=== PATIENT | male | born 1980 | race African-American/Black ===

== ENCOUNTER → 2016-11-30 | Outpatient (CLI) | payer MEDICAID | LOC: OD 13:03 | PROVIDERS: ATTEND Physician Assistant | DX: R05 Cough (principal) | CPT/HCPCS: 71020 ==

== ENCOUNTER → 2017-05-19 | Outpatient (CLI) | payer MEDICAID ==
--- NOTE | 2017-05-19 10:50 | RADIOLOGY REPORT (SQ) ---
EXAM DESCRIPTION: KUB COMPLETED DATE/TIME: 05/19/2017 10:16 am REASON FOR STUDY: FOREIGN BODY IN COLON, INITIAL ENCOUNTER T18.4XXA FOREIGN BODY IN COLON, INITIAL ENCOUNTER COMPARISON: None. NUMBER OF VIEWS: One view. TECHNIQUE: Supine radiographic image of the abdomen acquired. LIMITATIONS: None. FINDINGS: BOWEL GAS PATTERN: Nonobstructive bowel gas pattern. CALCIFICATIONS: No suspicious calcifications. SOFT TISSUES: No organomegaly. No radiopaque foreign body is seen. HARDWARE: None in the abdomen. BONES: No acute fracture. No worrisome bone lesions. OTHER: No other significant finding. IMPRESSION: NO RADIOGRAPHIC EVIDENCE FOR ACUTE ABDOMINAL DISEASE. TECHNICAL DOCUMENTATION: JOB ID: [id number] [employer]- All Rights Reserved
== END ==
LOC: OD 09:43
PROVIDERS: ATTEND Physician Assistant Surgical
DX: T18.4XXA Foreign body in colon, initial encounter (principal)
CPT/HCPCS: 74000

== ENCOUNTER 2018-02-24 15:37 | Inpatient (IN) | payer MEDICAID ==
--- NOTE | 2018-02-24 16:34 | ER Document Report ---
ED Medical Screen (RME) - General Chief Complaint: Probable Seizure Stated Complaint: POSSIBLE SEIZURE Time Seen by Provider: 02/24/18 16:34 Notes: 37-year-old male. Long-standing history of seizures. Has had multiple seizures in the last 24 hours. Last seizure was approximately 3 hours ago. Still postictal according to family members. Denies any fever, chills, sweats. I have greeted and performed a rapid initial assessment of this patient. A comprehensive ED assessment and evaluation of the patient, analysis of test results and completion of the medical decision making process will be conducted by additional ED providers. TRAVEL OUTSIDE OF THE [place] IN LAST 30 DAYS: No - Related Data Allergies/Adverse Reactions: No Known Allergies Allergy (Verified 02/24/18 16:36) Past Medical History - Social History Chew tobacco use (# tins/day): No Frequency of alcohol use: None Drug Abuse: None Pulmonary Medical History: Denies: Hx Tuberculosis Neurological Medical History: Reports: Hx Seizures Renal/ Medical History: Denies: Hx Peritoneal Dialysis GI Medical History: Reports: Hx Gastroesophageal Reflux Disease Past Surgical History: Reports: Hx Oral Surgery, Other - Vagal nerve stimulator in 2014 - Immunizations Hx Diphtheria, Pertussis, Tetanus Vaccination: No Physical Exam - Vital signs Vitals: Temp Pulse Resp BP Pulse Ox 99.5 F 114 H 24 H 147/95 H 94 02/24/18 15:44 02/24/18 15:44 02/24/18 15:44 02/24/18 15:44 02/24/18 15:44 Interpretation: Tachycardic - Notes Notes: Postictal in appearance - HEENT Head: Normocephalic, Atraumatic Eyes: Normal Pupils: PERRL - Respiratory Respiratory status: No respiratory distress Chest status: Nontender Breath sounds: Normal Chest palpation: Normal - Cardiovascular Rhythm: Tachycardia Heart sounds: Normal auscultation - Abdominal Inspection: Normal Distension: No distension Bowel sounds: Normal Tenderness: Nontender Organomegaly: No organomegaly - Neurological Neuro grossly intact: Yes Cognition: Confused, Other - Appears a bit postictal Orientation: AAOx4 Steve Coma Scale Eye Opening: Spontaneous [place] Coma Scale Verbal: Oriented Steve Coma Scale Motor: Obeys Commands [place] Coma Scale Total: 15 Speech: Normal Motor strength normal: LUE, RUE, LLE, RLE Sensory: Normal Course - Vital Signs Vital signs: Temp Pulse Resp BP Pulse Ox 99.5 F 114 H 24 H 147/95 H 94 02/24/18 15:44 02/24/18 15:44 02/24/18 15:44 02/24/18 15:44 02/24/18 15:44 Doctor's Discharge - Discharge Referrals: ROBERT HOUSE MD [Primary Care Provider] - Follow up as needed
[2018-02-24] MEDS ORDERED: LORAZEPAM INJ 2 MG/1 ML VIAL IV ONE (16:38)
[2018-02-24] MEDS ORDERED: NORMAL SALINE 1000 ML 1,000 ML IV ONE (18:05)
[2018-02-24 18:19] LABS: ABSOLUTE LYMPHOCYTES (AUTO) 1.3 10^3/uL (0.5-4.7); ABSOLUTE MONOCYTES (AUTO) 1.1 10^3/uL (0.1-1.4); ABSOLUTE NEUT (AUTO) 15.2 10^3/uL (1.7-8.2); BASOPHILS % (AUTO) 0.2 % (0-2); HEMATOCRIT 53.4 % (37.9-51.0); HEMOGLOBIN 17.7 g/dL (13.5-17.0); LYMPHOCYTES % (AUTO) 7.2 % (13-45); MEAN CORPUSCULAR HEMOGLOBIN 26.3 pg (27.0-33.4); MEAN CORPUSCULAR HGB CONC 33.2 g/dL (32.0-36.0); MEAN CORPUSCULAR VOLUME 79 fl (80-97); PLATELET COUNT 282 10^3/uL (150-450); RED BLOOD COUNT 6.74 10^6/uL (4.35-5.55); RED CELL DISTRIBUTION WIDTH 17.8 % (11.5-14.0); SEGMENTED NEUTROPHILS % (AUTO) 86.6 % (42-78); TOTAL CELLS COUNTED % (AUTO) 100 %; WHITE BLOOD COUNT 17.6 10^3/uL (4.0-10.5)
[2018-02-24 18:32] LABS: ALANINE AMINOTRANSFERASE 37 U/L (21-72); ALBUMIN 5.1 g/dL (3.5-5.0); ALKALINE PHOSPHATASE 122 U/L (38-126); ANION GAP 19 (5-19); APPEARANCE,URINE CLOUDY; ASPARTATE AMINO TRANSFERASE 49 U/L (17-59); BILIRUBIN,DIRECT 0.6 mg/dL (0.0-0.4); BILIRUBIN,TOTAL 0.7 mg/dL (0.2-1.3); BILIRUBIN,URINE NEGATIVE (NEGATIVE); BLOOD UREA NITROGEN 15 mg/dL (7-20); CALCIUM 10.3 mg/dL (8.4-10.2); CARBON DIOXIDE 20 mmol/L (22-30); CHLORIDE 110 mmol/L (98-107); COLOR,URINE YELLOW; GLUCOSE 93 mg/dL (75-110); GLUCOSE, URINE NEGATIVE (NEGATIVE); KETONES,URINE TRACE mg/dL (NEGATIVE); LEUKOCYTE ESTERASE,URINE NEGATIVE (NEGATIVE); NITRITE,URINE NEGATIVE (NEGATIVE); POTASSIUM 4.5 mmol/L (3.6-5.0); PROTEIN,URINE 100 mg/dL (NEGATIVE); SODIUM 149.1 mmol/L (137-145); TOTAL PROTEIN 8.8 g/dL (6.3-8.2); UROBILINOGEN,URINE NEGATIVE mg/dL (<2.0)
--- NOTE | 2018-02-24 19:00 | RADIOLOGY REPORT (SQ) ---
EXAM DESCRIPTION: CT HEAD WITHOUT COMPLETED DATE/TIME: 02/24/2018 6:35 pm REASON FOR STUDY: s/p grand mal seizure-hit head COMPARISON: None. TECHNIQUE: Axial images acquired through the brain without intravenous contrast. Images reviewed wi th bone, brain and subdural windows. Images stored on PACS. All CT scanners at this facility use dose modulation, iterative reconstruction, and/or weight based d osing when appropriate to reduce radiation dose to as low as reasonably achievable (ALARA). [facility]: Dose Right [facility]: CareDose [facility]: Dose Right [facility]: Teradose 4D [facility]: Stemgent RADIATION DOSE: CT Rad equipment meets quality standard of care and radiation dose reduction techniq ues were employed. CTDIvol: 53.2 mGy. DLP: 1044 mGy-cm. mGy. LIMITATIONS: None. FINDINGS: VENTRICLES: Normal size and contour. CEREBRUM: No masses. No hemorrhage. No midline shift. No evidence for acute infarction. Normal gra y/white matter differentiation. No areas of low density in the white matter. CEREBELLUM: No masses. No hemorrhage. No alteration of density. No evidence for acute infarction. EXTRAAXIAL SPACES: No fluid collections. No masses. ORBITS AND GLOBE: No intra- or extraconal masses. Normal contour of globe without masses. CALVARIUM: No fracture. PARANASAL SINUSES: No fluid or mucosal thickening. SOFT TISSUES: No mass or hematoma. OTHER: No other significant finding. IMPRESSION: No evidence of calvarial injury or intracranial hemorrhage. EVIDENCE OF ACUTE STROKE: NO. COMMENT: Quality ID # [id number]: Final reports with documentation of one or more dose reduction techniques (e.g., Automated exposure control, adjustment of the mA and/or kV according to patient size, use of iterative reconstruction technique) TECHNICAL DOCUMENTATION: JOB ID: [id number] [employer]- All Rights Reserved Reading location - IP/workstation name: [email or web address]
--- NOTE | 2018-02-24 19:01 | RADIOLOGY REPORT (SQ) ---
EXAM DESCRIPTION: CHEST SINGLE VIEW COMPLETED DATE/TIME: 02/24/2018 6:46 pm REASON FOR STUDY: seizure COMPARISON: 05/12/2017 EXAM PARAMETERS: NUMBER OF VIEWS: One view. TECHNIQUE: Single frontal radiographic view of the chest acquired. RADIATION DOSE: NA LIMITATIONS: None. FINDINGS: LUNGS AND PLEURA: Patchy retrocardiac opacity may represent a left lower lobe consolidatio n. No pneumothorax. No pleural effusion. MEDIASTINUM AND HILAR STRUCTURES: No masses. Contour normal. HEART AND VASCULAR STRUCTURES: Heart normal in size. Normal vasculature. BONES: No acute findings. HARDWARE: None in the chest. OTHER: No other significant finding. IMPRESSION: Retrocardiac opacity may represent a left lower lobe consolidation. No evidence of acut e osseous injury or pneumothorax. TECHNICAL DOCUMENTATION: JOB ID: [id number] [employer]- All Rights Reserved Reading location - IP/workstation name: [email or web address]
[2018-02-24] MEDS ORDERED: ACETAMINOPHEN 650 MG SUPP.RECT PR ONE ×2 (19:17→19:22)
[2018-02-24] MEDS ORDERED: CEFTRIAXONE 2 GM/D5W RTU 2 GM/50 ML RTUPB IV ONE (19:25)
[2018-02-24] MEDS ORDERED: AZITHROMYCIN INJ 500 MG VIAL IV ONE (19:26)
--- NOTE | 2018-02-24 19:32 | ER Document Report ---
ED General - General Chief Complaint: Probable Seizure Stated Complaint: POSSIBLE SEIZURE Time Seen by Provider: 02/24/18 16:34 Mode of Arrival: Stretcher Information source: Parent Notes: This is a 37-year-old man with a history of developmental delay, epilepsy who is brought to the emergency room after several grand mal seizures. Patient does have a history of a admission a year ago after grand mal seizures in the setting of a pneumonia. The patient's mother does state that he has had a cough. The patient himself is usually not a complainer. He denies pain. Medications: Onfi 20 mg twice daily Lyrica 75 mg twice daily Keppra 1500 mg twice daily Lamictal 300 mg twice daily Primary CARE physician: Dr. Barney Neurologist has been Dr. Catalan who has retired (they are in the process of getting a new neurologist). TRAVEL OUTSIDE OF THE [place] IN LAST 30 DAYS: No - HPI Onset: Yesterday Onset/Duration: Gradual Quality of pain: No pain Severity: None Pain Level: Denies Associated symptoms: Nonproductive cough, Fever Exacerbated by: Denies Relieved by: Denies Similar symptoms previously: Yes Recently seen / treated by doctor: No - Related Data Allergies/Adverse Reactions: No Known Allergies Allergy (Verified 02/24/18 16:36) Past Medical History - General Information source: Patient - Social History Smoking Status: Never Smoker Cigarette use (# per day): No Chew tobacco use (# tins/day): No Frequency of alcohol use: None Drug Abuse: None Lives with: Family Family History: Reviewed & Not Pertinent Patient has suicidal ideation: No Patient has homicidal ideation: No Pulmonary Medical History: Denies: Hx Tuberculosis Neurological Medical History: Reports: Hx Seizures Renal/ Medical History: Denies: Hx Peritoneal Dialysis GI Medical History: Reports: Hx Gastroesophageal Reflux Disease Past Surgical History: Reports: Hx Oral Surgery, Other - Vagal nerve stimulator in 2015 - Immunizations Hx Diphtheria, Pertussis, Tetanus Vaccination: No Review of Systems - Review of Systems Constitutional: denies: Chills, Fever EENT: No symptoms reported Cardiovascular: No symptoms reported Respiratory: See HPI Gastrointestinal: No symptoms reported Genitourinary: No symptoms reported Male Genitourinary: No symptoms reported Musculoskeletal: No symptoms reported Skin: No symptoms reported Hematologic/Lymphatic: No symptoms reported Neurological/Psychological: See HPI Physical Exam - Vital signs Vitals: Temp Pulse Resp BP Pulse Ox 99.5 F 114 H 24 H 147/95 H 94 02/24/18 15:44 02/24/18 15:44 02/24/18 15:44 02/24/18 15:44 02/24/18 15:44 Notes: Physical exam: GENERAL: Patient is alert, he is answering questions. He denies any pain. He is is at his baseline mental status as per the mother. His temperature is 101.9 rectally. HEAD: Atraumatic, normocephalic. EYES: Pupils equal round and reactive to light, extraocular movements intact, sclera anicteric, conjunctiva are normal. ENT: TMs normal, nares patent, oropharynx clear without exudates. Moist mucous membranes. NECK: Normal range of motion, supple without obvious mass or JVD. LUNGS: Breath sounds clear to auscultation bilaterally and equal. No wheezes rales or rhonchi. HEART: Regular rate and rhythm without murmurs, rubs or gallops. ABDOMEN: Soft, normoactive bowel sounds. No tenderness to palpation. No guarding, no rebound. No masses appreciated. EXTREMITIES: Normal range of motion, no pitting or edema. No clubbing or cyanosis. NEUROLOGICAL: Moving all extremities, at baseline mentally. PSYCH: Normal mood, normal affect. SKIN: Warm, Dry, normal turgor, no rashes or lesions noted. Course - Re-evaluation Re-evalutation: The patient has had a number of seizures today in the setting of an acute febrile illness. Patient's mother does state he has had a cough. The radiologist is read a retrocardiac x-ray on his chest x-ray consistent with pneumonia. He does have a leukocytosis. He does have a history of pneumonia in the past. Blood cultures were sent, IV fluids were started and the patient was started on IV ceftriaxone and IV azithromycin. He was observed in the ER for 5 hours and has not had any further seizures. I discussed the case with Dr. Dyer who is covering for Dr. Barney and willing to admit the patient to the hospital. 02/24/18 20:58 02/24/18 22:06 Note: Patient is due his nighttime meds: I have written for Keppra 1500 mg once , Lamictal 300 mg once, Lyrica 75 mg once. He do not have the Onfi and the patient's mother is going home to get it. He is remained seizure-free. - Vital Signs Vital signs: Temp Pulse Resp BP Pulse Ox 99.5 F 114 H 22 H 155/96 H 97 02/24/18 20:30 02/24/18 15:44 02/24/18 23:00 02/24/18 21:00 02/24/18 23:00 - Laboratory Result Diagrams: 02/24/18 17:40 02/24/18 17:40 Laboratory results interpreted by me: 02/24/18 02/24/18 02/24/18 17:40 17:40 17:40 WBC 17.6 H RBC 6.74 H Hgb 17.7 H Hct 53.4 H MCV 79 L MCH 26.3 L RDW 17.8 H Seg Neutrophils % 86.6 H Lymphocytes % 7.2 L Absolute Neutrophils 15.2 H Sodium 149.1 H Chloride 110 H Carbon Dioxide 20 L Calcium 10.3 H Magnesium 2.6 H Direct Bilirubin 0.6 H Total Protein 8.8 H Albumin 5.1 H Urine Protein Urine Ketones Urine Blood 02/24/18 17:40 WBC RBC Hgb Hct MCV MCH RDW Seg Neutrophils % Lymphocytes % Absolute Neutrophils Sodium Chloride Carbon Dioxide Calcium Magnesium Direct Bilirubin Total Protein Albumin Urine Protein 100 H Urine Ketones TRACE H Urine Blood LARGE H - Diagnostic Test Radiology reviewed: Image reviewed, Reports reviewed - Retrocardiac infiltrate Critical Care Note - Critical Care Note Total time excluding time spent on procedures (mins): 60 Discharge - Discharge Clinical Impression: Pneumonia, Seizure disorder, Seizures Condition: Stable Disposition: ADMITTED INPATIENT Admitting Provider: Ector Maldonado is covering Unit Admitted: Telemetry
[2018-02-24] MEDS ORDERED: CLOBAZAM 20 MG PO SCH (21:45)
[2018-02-24] MEDS ORDERED: LEVOFLOXACIN 750 MG/D5W RTU 750 MG/150 ML RTUPB IV ONE (22:00)
[2018-02-24] MEDS ORDERED: PREGABALIN 75 MG CAPSULE PO ONE ×2 (22:00)
[2018-02-24] MEDS ORDERED: LEVETIRACETAM 1500 MG/NACL-ISO 1,500 MG/100 ML RTUPB IV SCH (22:00)
[2018-02-24] MEDS ORDERED: IPRATROPIUM/ALBUTEROL 0.5-2.5 MG/3 ML AMPUL NEB ONE (22:00)
[2018-02-24] MEDS ORDERED: LAMOTRIGINE 100 MG TABLET PO ONE (22:00)
[2018-02-24 22:19] LABS: CREATINE KINASE MB 1.24 ng/mL (<4.55); TROPONIN I < 0.012 ng/mL
[2018-02-24] MEDS: LEVETIRACETAM 500 MG TABLET PO SCH (22:38)
[2018-02-24] MEDS: NORMAL SALINE 1000 ML 1,000 ML IV PRN (22:43)
[2018-02-25] MEDS: CEFEPIME 2 GM/D5W RTU 2 GM/50 ML RTUPB IV SCH ×3 (02:11→23:19)
[2018-02-25] MEDS: IPRATROPIUM/ALBUTEROL 0.5-2.5 MG/3 ML AMPUL NEB SCH ×4 (02:50→20:12)
[2018-02-25] MEDS: NORMAL SALINE 1000 ML 1,000 ML IV PRN ×3 (05:27→23:20)
[2018-02-25 06:54] LABS: ALANINE AMINOTRANSFERASE 38 U/L (21-72); ALKALINE PHOSPHATASE 90 U/L (38-126); ANION GAP 15 (5-19); ASPARTATE AMINO TRANSFERASE 110 U/L (17-59); BILIRUBIN,DIRECT 0.5 mg/dL (0.0-0.4); BILIRUBIN,TOTAL 0.8 mg/dL (0.2-1.3); BLOOD UREA NITROGEN 12 mg/dL (7-20); CARBON DIOXIDE 20 mmol/L (22-30); CHLORIDE 108 mmol/L (98-107); GLUCOSE 92 mg/dL (75-110); POTASSIUM 4.2 mmol/L (3.6-5.0); SODIUM 143.4 mmol/L (137-145); TOTAL PROTEIN 7.1 g/dL (6.3-8.2)
[2018-02-25] MEDS: ENOXAPARIN SODIUM INJ 40 MG/0.4 ML DISP.SYRIN SUBCUT SCH (09:21)
[2018-02-25] MEDS: PREGABALIN 75 MG CAPSULE PO SCH ×2 (09:21→17:34)
[2018-02-25] MEDS: LAMOTRIGINE 100 MG TABLET PO SCH ×2 (09:21→17:34)
[2018-02-25] MEDS: LEVETIRACETAM 500 MG TABLET PO SCH ×2 (09:21→23:20)
[2018-02-25] MEDS ORDERED: LEVOFLOXACIN 750 MG/D5W RTU 750 MG/150 ML RTUPB IV SCH (10:00)
[2018-02-25] MEDS ORDERED: ACETAMINOPHEN 325 MG TABLET PO PRN (10:22)
[2018-02-25] MEDS ORDERED: LORAZEPAM INJ 2 MG/1 ML VIAL IV PRN (10:23)
--- NOTE | 2018-02-25 11:11 | PDOC H&P ---
History of Present Illness Admission Date/PCP: 02/24/18 21:02 ROBERT HOUSE MD History of Present Illness: MIGUEL ANGEL ALCARAZ is a 37 year old male with a history of developmental delay, epilepsy, he was brought to the emergency room by his mother for evaluation of several episode of seizure, history taking is a challenge from this patient, on evaluation in the emergency room he was found to have pneumonia, chest x-ray showed retrocardiac infiltrate with leukocytosis and fever. Past Medical History Neurological Medical History: Reports: Seizures, Other - Developmental delay GI Medical History: Reports: Gastroesophageal Reflux Disease Past Surgical History Past Surgical History: Reports: Other - Vagal nerve stimulator in 2015 Social History Lives with: Family Smoking Status: Never Smoker Frequency of Alcohol Use: None Hx Recreational Drug Use: No Drugs: None Hx Prescription Drug Abuse: No Family History Family History: Reviewed & Not Pertinent Parental Family History Reviewed: Yes Children Family History Reviewed: Yes Sibling(s) Family History Reviewed.: Yes Medication/Allergy Home Medications: Clobazam [Onfi] 20 mg PO BID 05/10/17 Lamotrigine [Lamictal] 300 mg PO BID 05/10/17 Pregabalin [Lyrica 75 mg Capsule] 75 mg PO BID 05/10/17 Levetiracetam [Keppra 500 mg Tablet] 1,500 mg PO Q12 #60 tablet 05/14/17 Allergies/Adverse Reactions: No Known Allergies Allergy (Verified 02/24/18 16:36) Review of Systems Constitutional: ABSENT: chills, fever(s), headache(s), weight gain, weight loss Eyes: ABSENT: visual disturbances Ears: ABSENT: hearing changes Cardiovascular: ABSENT: chest pain, dyspnea on exertion, edema, orthropnea, palpitations Respiratory: PRESENT: cough, sputum. ABSENT: hemoptysis Gastrointestinal: ABSENT: abdominal pain, constipation, diarrhea, hematemesis, hematochezia, nausea, vomiting Genitourinary: ABSENT: dysuria, hematuria Musculoskeletal: ABSENT: joint swelling Integumentary: ABSENT: rash, wounds Neurological: ABSENT: abnormal gait, abnormal speech, confusion, dizziness, focal weakness, syncope Psychiatric: ABSENT: anxiety, depression, homidical ideation, suicidal ideation Endocrine: ABSENT: cold intolerance, heat intolerance, menstrual abnormalities, polydipsia, polyuria Hematologic/Lymphatic: ABSENT: easy bleeding, easy bruising, lymphadenopathy Physical Exam Vital Signs: Temp Pulse Resp BP Pulse Ox 98.8 F 105 H 16 152/97 H 96 02/25/18 07:23 02/25/18 08:33 02/25/18 08:33 02/25/18 07:23 02/25/18 08:33 Intake & Output 02/24/18 02/25/18 02/26/18 06:59 06:59 06:59 Intake Total 520 Balance 520 Weight 100 kg General appearance: PRESENT: no acute distress Head exam: PRESENT: atraumatic, normocephalic Eye exam: PRESENT: PERRLA Ear exam: PRESENT: normal external ear exam Mouth exam: PRESENT: moist, tongue midline Neck exam: PRESENT: full ROM Respiratory exam: PRESENT: clear to auscultation fabricio Cardiovascular exam: PRESENT: RRR, +S1, +S2 Vascular exam: PRESENT: normal capillary refill GI/Abdominal exam: PRESENT: normal bowel sounds, soft Rectal exam: PRESENT: deferred Neurological exam: PRESENT: alert Psychiatric exam: PRESENT: appropriate affect, normal mood Skin exam: PRESENT: dry, intact, warm Results Laboratory Results: 02/25/18 05:27 02/25/18 05:27 Sodium 143.4 Potassium 4.2 Chloride 108 H Carbon Dioxide 20 L Anion Gap 15 BUN 12 Creatinine 0.86 Est GFR ( Amer) > 60 Est GFR (Non-Af Amer) > 60 Glucose 92 Calcium 9.0 Total Bilirubin 0.8 AST 110 H ALT 38 Alkaline Phosphatase 90 Total Protein 7.1 Albumin 4.0 Impressions: Head CT 02/24/18 18:05 IMPRESSION: No evidence of calvarial injury or intracranial hemorrhage. EVIDENCE OF ACUTE STROKE: NO. Chest X-Ray 02/24/18 18:20 IMPRESSION: Retrocardiac opacity may represent a left lower lobe consolidation. No evidence of acute osseous injury or pneumothorax. Assessment & Plan - Diagnosis (1) Pneumonia Qualifiers: Pneumonia type: due to unspecified organism Laterality: left Lung location: lower lobe of lung Qualified Code(s): J18.1 - Lobar pneumonia, unspecified organism Is this a current diagnosis for this admission?: Yes Plan: Patient will be treated for community-acquired pneumonia (2) Developmental delay, moderate Is this a current diagnosis for this admission?: Yes (3) Recurrent seizures Is this a current diagnosis for this admission?: Yes
[2018-02-25 13:04] LABS: HEMOGLOBIN 15.9 g/dL (13.5-17.0); MEAN CORPUSCULAR HEMOGLOBIN 26.6 pg (27.0-33.4); MEAN CORPUSCULAR HGB CONC 33.2 g/dL (32.0-36.0); MEAN CORPUSCULAR VOLUME 80 fl (80-97); PLATELET COUNT 230 10^3/uL (150-450); RED BLOOD COUNT 5.98 10^6/uL (4.35-5.55); RED CELL DISTRIBUTION WIDTH 17.8 % (11.5-14.0); WHITE BLOOD COUNT 12.8 10^3/uL (4.0-10.5)
[2018-02-25 13:23] LABS: ABSOLUTE LYMPHOCYTES# (MANUAL) 3.3 10^3/uL (0.5-4.7); ABSOLUTE MONOCYTES # (MANUAL) 0.8 10^3/uL (0.1-1.4); ABSOLUTE NEUTROPHILS# (MANUAL) 8.7 10^3/uL (1.7-8.2); BASOPHILS % (MANUAL) 0 % (0-2); EOSINOPHILS % (MANUAL) 0 % (0-6); LYMPHOCYTES % (MANUAL) 26 % (13-45); MONOCYTES % (MANUAL) 6 % (3-13); SEGMENTED NEUTROPHILS % (MAN) 68 % (42-78); TOTAL CELLS COUNTED 100
[2018-02-25 13:25] LABS: ANISOCYTOSIS 1+; PLATELET COMMENT ADEQUATE; POIKILOCYTOSIS SLIGHT; TEAR DROP CELLS SLIGHT
[2018-02-25] MEDS: Clobazam [Onfi] 20 MG PO SCH (23:27)
[2018-02-26] MEDS: IPRATROPIUM/ALBUTEROL 0.5-2.5 MG/3 ML AMPUL NEB SCH ×4 (02:06→19:40)
[2018-02-26 06:57] LABS: ABSOLUTE LYMPHOCYTES (AUTO) 1.9 10^3/uL (0.5-4.7); ABSOLUTE MONOCYTES (AUTO) 0.8 10^3/uL (0.1-1.4); ABSOLUTE NEUT (AUTO) 5.7 10^3/uL (1.7-8.2); BASOPHILS % (AUTO) 0.5 % (0-2); EOSINOPHILS % (AUTO) 0.5 % (0-6); HEMATOCRIT 47.9 % (37.9-51.0); HEMOGLOBIN 15.8 g/dL (13.5-17.0); LYMPHOCYTES % (AUTO) 22.3 % (13-45); MEAN CORPUSCULAR HEMOGLOBIN 26.4 pg (27.0-33.4); MEAN CORPUSCULAR HGB CONC 32.9 g/dL (32.0-36.0); MEAN CORPUSCULAR VOLUME 80 fl (80-97); MONOCYTES % (AUTO) 9.5 % (3-13); PLATELET COUNT 219 10^3/uL (150-450); RED BLOOD COUNT 5.97 10^6/uL (4.35-5.55); RED CELL DISTRIBUTION WIDTH 17.6 % (11.5-14.0); SEGMENTED NEUTROPHILS % (AUTO) 67.2 % (42-78); TOTAL CELLS COUNTED % (AUTO) 100 %; WHITE BLOOD COUNT 8.4 10^3/uL (4.0-10.5)
[2018-02-26 07:12] LABS: ALANINE AMINOTRANSFERASE 48 U/L (21-72); ALBUMIN 3.8 g/dL (3.5-5.0); ALKALINE PHOSPHATASE 80 U/L (38-126); ANION GAP 14 (5-19); ASPARTATE AMINO TRANSFERASE 170 U/L (17-59); BILIRUBIN,DIRECT 0.4 mg/dL (0.0-0.4); BILIRUBIN,TOTAL 0.9 mg/dL (0.2-1.3); BLOOD UREA NITROGEN 10 mg/dL (7-20); CALCIUM 9.1 mg/dL (8.4-10.2); CARBON DIOXIDE 25 mmol/L (22-30); CHLORIDE 104 mmol/L (98-107); GLUCOSE 91 mg/dL (75-110); POTASSIUM 4.4 mmol/L (3.6-5.0); SODIUM 142.5 mmol/L (137-145); TOTAL PROTEIN 6.9 g/dL (6.3-8.2)
--- NOTE | 2018-02-26 09:30 | PDOC PROGRESS REPORT ---
Subjective Progress Note for:: 02/26/18 Subjective:: Patient is currently doing well Patient to however no seizures activity since that admissions No fever no chills Mother is on a bedside no other concern Reason For Visit: PNEUMONIA, SEIZURE Physical Exam Vital Signs: Temp Pulse Resp BP Pulse Ox 98.4 F 89 18 143/95 H 92 02/26/18 07:41 02/26/18 08:42 02/26/18 08:42 02/26/18 07:41 02/26/18 08:42 Intake & Output 02/25/18 02/26/18 02/27/18 06:59 06:59 06:59 Intake Total 520 4238 Balance 520 4238 Weight 100 kg 101.2 kg General appearance: PRESENT: no acute distress, well-developed, well-nourished Head exam: PRESENT: atraumatic, normocephalic Eye exam: PRESENT: conjunctiva pink, EOMI, PERRLA. ABSENT: scleral icterus Ear exam: PRESENT: normal external ear exam Mouth exam: PRESENT: moist, tongue midline Neck exam: PRESENT: full ROM. ABSENT: carotid bruit, JVD, lymphadenopathy, thyromegaly Respiratory exam: PRESENT: clear to auscultation fabricio Cardiovascular exam: PRESENT: RRR. ABSENT: diastolic murmur, rubs, systolic murmur Pulses: PRESENT: normal dorsalis pedis pul, +2 pedal pulses bilateral Vascular exam: PRESENT: normal capillary refill GI/Abdominal exam: PRESENT: normal bowel sounds, soft. ABSENT: distended, guarding, mass, organolmegaly, rebound, tenderness Rectal exam: PRESENT: deferred Neurological exam: PRESENT: alert, awake, oriented to person, oriented to place , oriented to time, oriented to situation, CN II-XII grossly intact. ABSENT: motor sensory deficit Psychiatric exam: PRESENT: appropriate affect, normal mood. ABSENT: homicidal ideation, suicidal ideation Skin exam: PRESENT: dry, intact, warm. ABSENT: cyanosis, rash Results Laboratory Results: 02/26/18 06:16 02/26/18 06:16 02/25/18 02/26/18 02/26/18 05:27 06:16 06:16 WBC 12.8 H 8.4 RBC 5.98 H 5.97 H Hgb 15.9 15.8 Hct 48.0 47.9 MCV 80 80 MCH 26.6 L 26.4 L MCHC 33.2 32.9 RDW 17.8 H 17.6 H Plt Count 230 219 Seg Neutrophils % Not Reportable 67.2 Lymphocytes % Not Reportable 22.3 Monocytes % Not Reportable 9.5 Eosinophils % Not Reportable 0.5 Basophils % Not Reportable 0.5 Absolute Neutrophils Not Reportable 5.7 Absolute Lymphocytes Not Reportable 1.9 Absolute Monocytes Not Reportable 0.8 Absolute Eosinophils Not Reportable 0.0 Absolute Basophils Not Reportable 0.0 Sodium 142.5 Potassium 4.4 Chloride 104 Carbon Dioxide 25 Anion Gap 14 BUN 10 Creatinine 0.88 Est GFR ( Amer) > 60 Est GFR (Non-Af Amer) > 60 Glucose 91 Calcium 9.1 Total Bilirubin 0.9 AST 170 H ALT 48 Alkaline Phosphatase 80 Total Protein 6.9 Albumin 3.8 Impressions: Head CT 02/24/18 18:05 IMPRESSION: No evidence of calvarial injury or intracranial hemorrhage. EVIDENCE OF ACUTE STROKE: NO. Chest X-Ray 02/24/18 18:20 IMPRESSION: Retrocardiac opacity may represent a left lower lobe consolidation. No evidence of acute osseous injury or pneumothorax. Assessment & Plan - Diagnosis (1) Pneumonia Qualifiers: Pneumonia type: due to unspecified organism Laterality: left Lung location: lower lobe of lung Qualified Code(s): J18.1 - Lobar pneumonia, unspecified organism Is this a current diagnosis for this admission?: Yes Plan: Will DC the Levaquin due to the seizures activity which Levaquin increase the seizures activity will continues to cefepime and add the Zithromax and repeat the chest x-ray (2) Seizure Is this a current diagnosis for this admission?: Yes Plan: Currently all stable continues to current medication (3) Developmental delay, moderate Is this a current diagnosis for this admission?: Yes - Time Time Spent with patient: 15-24 minutes Medications reviewed and adjusted accordingly: Yes Anticipated discharge: Home Within: Other - Inpatient Certification Medical Necessity: Need Close Monitoring Due to Risk of Patient Decompensation, Need for IV Antibiotics Post Hospital Care: D/C Training Program Developer Documentation - Plan Summary Plan Summary: Discussed with the mother about all plan
[2018-02-26] MEDS: LEVETIRACETAM 500 MG TABLET PO SCH ×2 (11:02→22:33)
[2018-02-26] MEDS: AZITHROMYCIN 250 MG TABLET PO SCH (11:03)
[2018-02-26] MEDS: LAMOTRIGINE 100 MG TABLET PO SCH ×2 (11:03→17:39)
[2018-02-26] MEDS: PREGABALIN 75 MG CAPSULE PO SCH ×2 (11:03→17:40)
[2018-02-26] MEDS: ENOXAPARIN SODIUM INJ 40 MG/0.4 ML DISP.SYRIN SUBCUT SCH (11:04)
[2018-02-26] MEDS: CEFEPIME 2 GM/D5W RTU 2 GM/50 ML RTUPB IV SCH ×2 (11:04→22:33)
[2018-02-26] MEDS: Clobazam [Onfi] 20 MG PO SCH ×2 (11:10→22:47)
--- NOTE | 2018-02-26 11:44 | RADIOLOGY REPORT (SQ) ---
EXAM DESCRIPTION: CHEST 2 VIEWS COMPLETED DATE/TIME: 02/26/2018 10:57 am REASON FOR STUDY: pnemonia COMPARISON: 05/12/2017 EXAM PARAMETERS: NUMBER OF VIEWS: two views TECHNIQUE: Digital Frontal and Lateral radiographic views of the chest acquired. RADIATION DOSE: NA LIMITATIONS: none FINDINGS: LUNGS AND PLEURA: No opacities, masses or pneumothorax. No pleural effusion. MEDIASTINUM AND HILAR STRUCTURES: No masses or contour abnormalities. HEART AND VASCULAR STRUCTURES: Heart normal size. No evidence for failure. BONES: No acute findings. HARDWARE: Vagal nerve stimulator left. OTHER: No other significant finding. IMPRESSION: NO ACUTE RADIOGRAPHIC FINDING IN THE CHEST. TECHNICAL DOCUMENTATION: JOB ID: [id number] [employer]- All Rights Reserved Reading location - IP/workstation name: [email or web address]
[2018-02-27] MEDS: IPRATROPIUM/ALBUTEROL 0.5-2.5 MG/3 ML AMPUL NEB SCH ×2 (02:00→08:06)
[2018-02-27 06:12] LABS: ABSOLUTE BASOPHILS # (AUTO) 0.1 10^3/uL (0.0-0.2); ABSOLUTE EOSINOPHILS # (AUTO) 0.1 10^3/uL (0.0-0.6); ABSOLUTE LYMPHOCYTES (AUTO) 2.3 10^3/uL (0.5-4.7); ABSOLUTE MONOCYTES (AUTO) 0.8 10^3/uL (0.1-1.4); ABSOLUTE NEUT (AUTO) 5.1 10^3/uL (1.7-8.2); BASOPHILS % (AUTO) 0.6 % (0-2); EOSINOPHILS % (AUTO) 1.1 % (0-6); HEMATOCRIT 47.6 % (37.9-51.0); HEMOGLOBIN 15.9 g/dL (13.5-17.0); LYMPHOCYTES % (AUTO) 26.9 % (13-45); MEAN CORPUSCULAR HEMOGLOBIN 26.2 pg (27.0-33.4); MEAN CORPUSCULAR HGB CONC 33.4 g/dL (32.0-36.0); MEAN CORPUSCULAR VOLUME 79 fl (80-97); PLATELET COUNT 221 10^3/uL (150-450); RED BLOOD COUNT 6.06 10^6/uL (4.35-5.55); RED CELL DISTRIBUTION WIDTH 17.6 % (11.5-14.0); SEGMENTED NEUTROPHILS % (AUTO) 61.4 % (42-78); TOTAL CELLS COUNTED % (AUTO) 100 %; WHITE BLOOD COUNT 8.4 10^3/uL (4.0-10.5)
[2018-02-27 06:32] LABS: ALANINE AMINOTRANSFERASE 53 U/L (21-72); ALBUMIN 3.9 g/dL (3.5-5.0); ALKALINE PHOSPHATASE 76 U/L (38-126); ANION GAP 13 (5-19); ASPARTATE AMINO TRANSFERASE 151 U/L (17-59); BILIRUBIN,DIRECT 0.4 mg/dL (0.0-0.4); BILIRUBIN,TOTAL 0.8 mg/dL (0.2-1.3); BLOOD UREA NITROGEN 12 mg/dL (7-20); CALCIUM 9.6 mg/dL (8.4-10.2); CARBON DIOXIDE 27 mmol/L (22-30); CHLORIDE 103 mmol/L (98-107); GLUCOSE 89 mg/dL (75-110); POTASSIUM 4.3 mmol/L (3.6-5.0); SODIUM 143.3 mmol/L (137-145); TOTAL PROTEIN 6.9 g/dL (6.3-8.2)
[2018-02-27 08:07] VITALS: BP 149/90
[2018-02-27] MEDS: LEVETIRACETAM 500 MG TABLET PO SCH (09:02)
[2018-02-27] MEDS: LAMOTRIGINE 100 MG TABLET PO SCH (09:02)
[2018-02-27] MEDS: Clobazam [Onfi] 20 MG PO SCH (09:03)
[2018-02-27] MEDS: PREGABALIN 75 MG CAPSULE PO SCH (09:03)
[2018-02-27] MEDS: AZITHROMYCIN 250 MG TABLET PO SCH (09:03)
[2018-02-27] MEDS: CEFEPIME 2 GM/D5W RTU 2 GM/50 ML RTUPB IV SCH (09:04)
[2018-02-27] MEDS: ENOXAPARIN SODIUM INJ 40 MG/0.4 ML DISP.SYRIN SUBCUT SCH (09:04)
--- NOTE | 2018-02-27 10:17 | PDOC DISCHARGE SUMMARY ---
General - Admit/Disc Date/PCP Admission Date/Primary Care Provider: 02/24/18 21:02 ROBERT HOUSE MD Discharge Date: 02/27/18 - Discharge Diagnosis (1) Pneumonia Is this a current diagnosis for this admission?: Yes Summary: Currently all resolving continues to p.o. antibiotic patients remain afebrile and white count is normal (2) Seizure Is this a current diagnosis for this admission?: Yes Summary: Continues to current medication and follow with the neurology (3) Developmental delay, moderate Is this a current diagnosis for this admission?: Yes - Additional Information Discharge Diet: As Tolerated, Regular Discharge Activity: Activity As Tolerated Prescriptions: Azithromycin [Zithromax 250 mg Tablet] 250 mg PO DAILY #4 tablet Cefdinir [Omnicef 300 mg Capsule] 1 cap PO BID #14 capsule Home Medications: Clobazam [Onfi] 20 mg PO Q12 05/10/17 Lamotrigine [Lamictal] 300 mg PO Q12 05/10/17 Pregabalin [Lyrica 75 mg Capsule] 75 mg PO Q12 05/10/17 Levetiracetam [Keppra 500 mg Tablet] 1,500 mg PO Q12 #60 tablet 05/14/17 Azithromycin [Zithromax 250 mg Tablet] 250 mg PO DAILY #4 tablet 02/27/18 Cefdinir [Omnicef 300 mg Capsule] 1 cap PO BID #14 capsule 02/27/18 History of Present Illness History of Present Illness: MIGUEL ANGEL ALCARAZ is a 37 year old male This is a 37-year-old male admitting because of the seizures and the possible pneumonia Hospital Course Hospital Course: This is a 37-year-old male admitting in the hospital because of the elevated white count pneumonia and a seizures activity Patient's otherwise remain stable no seizure activity in the hospital patient was started on IV antibiotic and switch to the p.o. antibiotic Patient's chest x-ray is clear Since pt remain afebrile pt is white count is also normal Patient's back to the baseline walking the hallway without any problems and the p.o. intake is good Discussed with the mother and the bedside and patient's discharge home with the p.o. medications and follow outpatients neurology and following a one-week in office Physical Exam Vital Signs: Temp Pulse Resp BP Pulse Ox 98.8 F 99 16 149/90 H 96 06/19/18 08:05 02/27/18 08:08 02/27/18 08:08 02/27/18 08:05 02/27/18 08:08 Intake & Output 02/26/18 02/27/18 02/28/18 06:59 06:59 06:59 Intake Total 4238 2635 Balance 4238 2635 Weight 101.2 kg 100.9 kg General appearance: PRESENT: no acute distress, well-developed, well-nourished Head exam: PRESENT: atraumatic, normocephalic Eye exam: PRESENT: conjunctiva pink, EOMI, PERRLA. ABSENT: scleral icterus Ear exam: PRESENT: normal external ear exam Mouth exam: PRESENT: moist, tongue midline Neck exam: PRESENT: full ROM. ABSENT: carotid bruit, JVD, lymphadenopathy, thyromegaly Respiratory exam: PRESENT: clear to auscultation fabricio Cardiovascular exam: PRESENT: RRR. ABSENT: diastolic murmur, rubs, systolic murmur Pulses: PRESENT: normal dorsalis pedis pul, +2 pedal pulses bilateral Vascular exam: PRESENT: normal capillary refill GI/Abdominal exam: PRESENT: normal bowel sounds, soft. ABSENT: distended, guarding, mass, organolmegaly, rebound, tenderness Rectal exam: PRESENT: deferred Extremities exam: ABSENT: pedal edema Musculoskeletal exam: PRESENT: ambulatory Neurological exam: PRESENT: alert, awake, oriented to person, oriented to place , oriented to time, oriented to situation, CN II-XII grossly intact. ABSENT: motor sensory deficit Psychiatric exam: PRESENT: appropriate affect, normal mood. ABSENT: homicidal ideation, suicidal ideation Skin exam: PRESENT: dry, intact, warm. ABSENT: cyanosis, rash Results Laboratory Results: 02/27/18 05:25 02/27/18 05:25 02/27/18 02/27/18 05:25 05:25 WBC 8.4 RBC 6.06 H Hgb 15.9 Hct 47.6 MCV 79 L MCH 26.2 L MCHC 33.4 RDW 17.6 H Plt Count 221 Seg Neutrophils % 61.4 Lymphocytes % 26.9 Monocytes % 10.0 Eosinophils % 1.1 Basophils % 0.6 Absolute Neutrophils 5.1 Absolute Lymphocytes 2.3 Absolute Monocytes 0.8 Absolute Eosinophils 0.1 Absolute Basophils 0.1 Sodium 143.3 Potassium 4.3 Chloride 103 Carbon Dioxide 27 Anion Gap 13 BUN 12 Creatinine 0.86 Est GFR ( Amer) > 60 Est GFR (Non-Af Amer) > 60 Glucose 89 Calcium 9.6 Total Bilirubin 0.8 AST 151 H ALT 53 Alkaline Phosphatase 76 Total Protein 6.9 Albumin 3.9 Impressions: Head CT 02/24/18 18:05 IMPRESSION: No evidence of calvarial injury or intracranial hemorrhage. EVIDENCE OF ACUTE STROKE: NO. Chest X-Ray 02/26/18 00:00 IMPRESSION: NO ACUTE RADIOGRAPHIC FINDING IN THE CHEST. Qualifiers - * PATIENT BEING DISCHARGED WITH ANY OF THE FOLLOWING DIAGNOSIS: No VTE patient discharged on overlapping Therapy?: Yes Plan Time Spent: Less than 30 Minutes - Discussed with the mother about the all the patient's current condition and follow-up plan Discussed with the about the aspirations precautions Following a one-week in office and follow with the neurology
== END 2018-02-27 10:34 | disposition home or self-care (01) | DRG 100 ==
LOC: ER 15:37 → EH 21:02 → 3S 02-25 00:15
PROVIDERS: ADMIT Family Medicine; ATTEND Family Medicine
DX: G40.409 Other generalized epilepsy and epileptic syndromes, not intractable, without status epilepticus (principal); J18.9 Pneumonia, unspecified organism; K21.9 Gastro-esophageal reflux disease without esophagitis; R62.50 Unspecified lack of expected normal physiological development in childhood
CPT/HCPCS: 36415; 70450; 71045; 71046; 80053; 81001; 82553; 83036; 83735; 84484; 85025; 87040; 87077; 87186; 94640; 96361; 96365; 96367; 99291; J0456; J0692; J0696; J1650; J1956; J3490; J7030; J7620

== ENCOUNTER 2018-05-29 09:26 | Emergency (ER) | payer MEDICAID ==
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
== END 2018-05-29 10:29 | disposition home or self-care (01) ==
LOC: ER 09:26
DX: G40.909 Epilepsy, unspecified, not intractable, without status epilepticus (principal); T50.906A Underdosing of unspecified drugs, medicaments and biological substances, initial encounter; Z91.128 Patient's intentional underdosing of medication regimen for other reason; Z91.14 Patient's other noncompliance with medication regimen
CPT/HCPCS: 99281

== ENCOUNTER 2018-06-08 19:14 | Emergency (ER) | payer MEDICAID ==
[2018-06-08 19:32] VITALS: BP 141/93
[2018-06-08] MEDS ORDERED: LEVETIRACETAM 1500 MG/NACL-ISO 1,500 MG/100 ML RTUPB IV ONE (20:03)
[2018-06-08] MEDS ORDERED: CHLORPROMAZINE HCL 50 MG TABLET PO ONE (20:04)
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
== END 2018-06-08 20:52 | disposition home or self-care (01) ==
LOC: ER 19:14
DX: G40.909 Epilepsy, unspecified, not intractable, without status epilepticus (principal); R06.6 Hiccough
CPT/HCPCS: 99284; 96365; J3490; J1953

== ENCOUNTER 2019-02-26 21:51 | Emergency (ER) | payer MEDICAID ==
--- NOTE | 2019-02-27 00:09 | ER Document Report ---
ED Seizure - General Chief Complaint: Seizure Stated Complaint: FALL/RIGHT LEG INJURY/SEIZURE Time Seen by Provider: 02/26/19 23:28 Primary Care Provider: ROBERT HOUSE MD [Primary Care Provider] - Follow up as needed Notes: 38-year-old male to the emergency department chief complaint of seizure. Patient has long-standing history of seizures. Last seizure 3 months ago. On all of his regular medications according to his mom. Reportedly had a full- blown seizure at home. Twisted his ankle. Complaining of some mild pain in the right foot and ankle. - HPI Patient complains to provider of: History of seizures - Related Data Allergies/Adverse Reactions: No Known Allergies Allergy (Verified 05/29/18 09:27) Past Medical History - General Information source: Patient, Parent - Social History Smoking Status: Never Smoker Chew tobacco use (# tins/day): No Frequency of alcohol use: None Drug Abuse: None Lives with: Family Family History: Reviewed & Not Pertinent Patient has suicidal ideation: No Patient has homicidal ideation: No Pulmonary Medical History: Denies: Hx Tuberculosis Neurological Medical History: Reports: Hx Seizures Renal/ Medical History: Denies: Hx Peritoneal Dialysis GI Medical History: Reports: Hx Gastroesophageal Reflux Disease Past Surgical History: Reports: Hx Oral Surgery, Other - Vagal nerve stimulator in 2015 - Immunizations Hx Diphtheria, Pertussis, Tetanus Vaccination: No Review of Systems - Review of Systems Notes: Constitutional: denies: Chills, Diaphoresis, Fever, Malaise, Weakness EENT: denies: Eye discharge, Blurred vision, Tearing, Double vision, Nose congestion, Nose discharge, Throat swelling, Mouth pain Cardiovascular: denies: Palpitations, Heart racing, Orthopnea, Dyspnea, Chest pain Respiratory: denies: Cough, Hurts to breathe, Wheezing, Shortness of breath Gastrointestinal: denies: Abdominal pain, Diarrhea, Nausea, Vomiting, Black stools, bright red blood in stool Genitourinary: denies: Burning, Dysuria, Discharge, Frequency, Flank pain, Hematuria Musculoskeletal: denies: Joint pain, Muscle pain, Muscle stiffness, back pain, +right foot pain Hematologic/Lymphatic: denies: Anemia, Easy bleeding, Easy bruising, Blood clots Neurological/Psychological: denies: Confusion, Dementia, Depression, Loss of consciousness. History of seizures Skin: No lesions, no masses, no skin breakdown, no abscesses Physical Exam - Vital signs Vitals: Temp Pulse Resp BP Pulse Ox 98.7 F 96 24 H 165/99 H 94 02/26/19 22:05 02/26/19 22:05 02/26/19 22:05 02/26/19 22:05 02/26/19 22:05 Interpretation: Normal - General General appearance: Appears well, Alert - HEENT Head: Normocephalic, Atraumatic Eyes: Normal Pupils: PERRL - Respiratory Respiratory status: No respiratory distress Chest status: Nontender Breath sounds: Normal Chest palpation: Normal - Cardiovascular Rhythm: Regular Heart sounds: Normal auscultation Murmur: No - Abdominal Inspection: Normal Distension: No distension Bowel sounds: Normal Tenderness: Nontender Organomegaly: No organomegaly - Back Back: Normal, Nontender - Extremities General upper extremity: Normal inspection, Nontender, Normal color, Normal ROM, Normal temperature General lower extremity: Normal inspection, Nontender, Tender, Normal color, Normal ROM, Normal temperature, Normal weight bearing. No: Jonah's sign - Neurological Neuro grossly intact: Yes Cognition: Normal Orientation: AAOx4 Steve Coma Scale Eye Opening: Spontaneous Steve Coma Scale Verbal: Oriented [place] Coma Scale Motor: Obeys Commands Steve Coma Scale Total: 15 Speech: Normal Motor strength normal: LUE, RUE, LLE, RLE Sensory: Normal - Psychological Associated symptoms: Normal affect, Normal mood - Skin Skin Temperature: Warm Skin Moisture: Dry Skin Color: Normal Course - Re-evaluation Re-evalutation: 02/27/19 03:05 Laboratory 02/27/19 02/27/19 02/27/19 02:12 02:12 02:12 WBC 8.6 RBC 6.21 H Hgb 16.4 Hct 49.4 MCV 80 MCH 26.5 L MCHC 33.3 RDW 17.5 H Plt Count 224 Seg Neutrophils % 62.8 Lymphocytes % 26.6 Monocytes % 9.6 Eosinophils % 0.3 Basophils % 0.7 Absolute Neutrophils 5.4 Absolute Lymphocytes 2.3 Absolute Monocytes 0.8 Absolute Eosinophils 0.0 Absolute Basophils 0.1 Platelet Comment ADEQUATE Anisocytosis 1+ Microcytosis SLIGHT Sodium 138.1 Potassium 4.1 Chloride 102 Carbon Dioxide 25 Anion Gap 11 BUN 10 Creatinine 0.92 Est GFR ( Amer) > 60 Est GFR (Non-Af Amer) > 60 Glucose 102 Calcium 9.7 Total Bilirubin 0.7 Direct Bilirubin 0.3 Neonat Total Bilirubin Not Reportable Neonat Direct Bilirubin Not Reportable Neonat Indirect Bili Not Reportable AST 38 ALT 38 Alkaline Phosphatase 113 Total Protein 8.2 Albumin 4.7 Urine Color YELLOW Urine Appearance CLEAR Urine pH 6.0 Ur Specific [place] 1.014 Urine Protein NEGATIVE Urine Glucose (UA) NEGATIVE Urine Ketones NEGATIVE Urine Blood NEGATIVE Urine Nitrite NEGATIVE Urine Bilirubin NEGATIVE Urine Urobilinogen NEGATIVE Ur Leukocyte Esterase NEGATIVE Urine WBC (Auto) 0 Urine RBC (Auto) 0 Urine Mucus (Auto) RARE Urine Ascorbic Acid NEGATIVE Foot X-Ray 02/26/19 23:49 IMPRESSION: No acute findings. Patient has a long-standing history of seizures. Patient was given Keppra and Valium in the ER. No further seizure-like activity. His labs are unremarkable. At this time feel comfortable discharge in stable condition. - Vital Signs Vital signs: Temp Pulse Resp BP Pulse Ox 98.7 F 97 16 168/105 H 93 02/26/19 22:05 02/27/19 02:14 02/27/19 02:14 02/27/19 02:14 02/27/19 02:14 - Laboratory Result Diagrams: 02/27/19 02:12 02/27/19 02:12 Laboratory results interpreted by me: 02/27/19 02:12 RBC 6.21 H MCH 26.5 L RDW 17.5 H Discharge - Discharge Clinical Impression: Epilepsy Qualifiers: Epilepsy type: unspecified Intractability: not intractable Status epilepticus: without status epilepticus Qualified Code(s): G40.909 - Epilepsy, unspecified, not intractable, without status epilepticus Condition: Good Disposition: HOME, SELF-CARE Instructions: Seizure, Known Epileptic ([facility]), Sprained Ankle ([facility]) Additional Instructions: Please continue take all of your regular seizure medications as instructed. Follow-up with your neurologist. Return for worsening symptoms or concerns. Referrals: ROBERT HOUSE MD [Primary Care Provider] - Follow up as needed
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
[2019-02-27] MEDS ORDERED: LEVETIRACETAM 500 MG TABLET PO ONE (00:46)
[2019-02-27] MEDS ORDERED: DIAZEPAM 5 MG TABLET PO ONE (00:46)
[2019-02-27 02:25] LABS: ABSOLUTE BASOPHILS # (AUTO) 0.1 10^3/uL (0.0-0.2); ABSOLUTE LYMPHOCYTES (AUTO) 2.3 10^3/uL (0.5-4.7); ABSOLUTE MONOCYTES (AUTO) 0.8 10^3/uL (0.1-1.4); ABSOLUTE NEUT (AUTO) 5.4 10^3/uL (1.7-8.2); BASOPHILS % (AUTO) 0.7 % (0-2); EOSINOPHILS % (AUTO) 0.3 % (0-6); HEMATOCRIT 49.4 % (37.9-51.0); HEMOGLOBIN 16.4 g/dL (13.5-17.0); LYMPHOCYTES % (AUTO) 26.6 % (13-45); MEAN CORPUSCULAR HEMOGLOBIN 26.5 pg (27.0-33.4); MEAN CORPUSCULAR HGB CONC 33.3 g/dL (32.0-36.0); MEAN CORPUSCULAR VOLUME 80 fl (80-97); MONOCYTES % (AUTO) 9.6 % (3-13); PLATELET COUNT 224 10^3/uL (150-450); RED BLOOD COUNT 6.21 10^6/uL (4.35-5.55); RED CELL DISTRIBUTION WIDTH 17.5 % (11.5-14.0); SEGMENTED NEUTROPHILS % (AUTO) 62.8 % (42-78); TOTAL CELLS COUNTED % (AUTO) 100 %; WHITE BLOOD COUNT 8.6 10^3/uL (4.0-10.5)
[2019-02-27 02:32] LABS: APPEARANCE,URINE CLEAR; BILIRUBIN,URINE NEGATIVE (NEGATIVE); COLOR,URINE YELLOW; GLUCOSE, URINE NEGATIVE (NEGATIVE); KETONES,URINE NEGATIVE (NEGATIVE); LEUKOCYTE ESTERASE,URINE NEGATIVE (NEGATIVE); NITRITE,URINE NEGATIVE (NEGATIVE); PROTEIN,URINE NEGATIVE (NEGATIVE); URINE SPECIFIC GRAVITY 1.014; UROBILINOGEN,URINE NEGATIVE mg/dL (<2.0)
[2019-02-27 02:40] LABS: ANISOCYTOSIS 1+; PLATELET COMMENT ADEQUATE
[2019-02-27 02:44] LABS: ALANINE AMINOTRANSFERASE 38 U/L (21-72); ALBUMIN 4.7 g/dL (3.5-5.0); ALKALINE PHOSPHATASE 113 U/L (38-126); ANION GAP 11 (5-19); ASPARTATE AMINO TRANSFERASE 38 U/L (17-59); BILIRUBIN,DIRECT 0.3 mg/dL (0.0-0.4); BILIRUBIN,TOTAL 0.7 mg/dL (0.2-1.3); BLOOD UREA NITROGEN 10 mg/dL (7-20); CALCIUM 9.7 mg/dL (8.4-10.2); CARBON DIOXIDE 25 mmol/L (22-30); CHLORIDE 102 mmol/L (98-107); GLUCOSE 102 mg/dL (75-110); POTASSIUM 4.1 mmol/L (3.6-5.0); SODIUM 138.1 mmol/L (137-145); TOTAL PROTEIN 8.2 g/dL (6.3-8.2)
[2019-02-27 03:25] VITALS: BP 161/90
--- NOTE | 2019-02-27 07:48 | EKG REPORT ---
SEVERITY:- BORDERLINE ECG - SINUS RHYTHM PROBABLE LEFT ATRIAL ABNORMALITY : Confirmed by: Jewell Pastor MD 27-Feb-2019 07:48:00
== END 2019-02-27 03:23 | disposition home or self-care (01) ==
LOC: ER 21:51
DX: G40.909 Epilepsy, unspecified, not intractable, without status epilepticus (principal); M25.571 Pain in right ankle and joints of right foot
CPT/HCPCS: 93005; 99284; 36415; 80177; 85025; 80053; 80175; 81001; 73630; 93010; J3490 ×2

== ENCOUNTER 2019-06-27 16:36 | Emergency (ER) | payer MEDICAID ==
--- NOTE | 2019-06-27 17:08 | ER Document Report ---
ED Seizure - General Stated Complaint: POSSIBLE SEIZURE Time Seen by Provider: 06/27/19 17:01 Primary Care Provider: ROBERT HOUSE MD [Primary Care Provider] - Follow up as needed Mode of Arrival: Medic - HPI Patient complains to provider of: History of seizures - pt with h/o seizures on keppra and lamictal with seizure today - Related Data Allergies/Adverse Reactions: No Known Allergies Allergy (Verified 05/29/18 09:27) Past Medical History - Social History Smoking Status: Unknown if Ever Smoked Family History: Reviewed & Not Pertinent Patient has suicidal ideation: No Patient has homicidal ideation: No Pulmonary Medical History: Denies: Hx Tuberculosis Neurological Medical History: Reports: Hx Seizures Renal/ Medical History: Denies: Hx Peritoneal Dialysis GI Medical History: Reports: Hx Gastroesophageal Reflux Disease Past Surgical History: Reports: Hx Oral Surgery, Other - Vagal nerve stimulator in 2014 - Immunizations Hx Diphtheria, Pertussis, Tetanus Vaccination: No Review of Systems - Review of Systems Constitutional: No symptoms reported EENT: No symptoms reported Cardiovascular: No symptoms reported Respiratory: No symptoms reported Musculoskeletal: No symptoms reported Neurological/Psychological: See HPI, Seizure -: Yes All other systems reviewed and negative Physical Exam - Vital signs Vitals: Temp Pulse Resp BP Pulse Ox 98.2 F 123 H 48 H 173/102 H 91 L 06/27/19 16:45 06/27/19 16:45 06/27/19 16:45 06/27/19 16:45 06/27/19 16:45 - General General appearance: Appears well, Alert In distress: None - HEENT Head: Normocephalic Pupils: PERRL Mouth/Lips: Normal Mucous membranes: Normal Pharynx: Normal Neck: Normal - Respiratory Respiratory status: No respiratory distress Breath sounds: Normal - Cardiovascular Rhythm: Regular Heart sounds: Normal auscultation Murmur: No - Extremities General upper extremity: Normal inspection General lower extremity: Normal inspection - Neurological Neuro grossly intact: Yes Cognition: Normal Orientation: AAOx4 Speech: Normal Motor strength normal: LUE, RUE, LLE, RLE Sensory: Normal Course - Re-evaluation Re-evalutation: 06/27/19 18:39 pt. feels well at d/c -- no seizure activity in the ED -HR now 99 ; BP 150/99. Mom ok to take him home - Vital Signs Vital signs: Temp Pulse Resp BP Pulse Ox 98.2 F 123 H 38 H 151/100 H 93 06/27/19 16:45 06/27/19 16:45 06/27/19 18:01 06/27/19 18:01 06/27/19 18:01 - Laboratory Result Diagrams: 06/27/19 16:45 06/27/19 16:45 Laboratory results interpreted by me: 06/27/19 06/27/19 06/27/19 16:45 16:45 16:54 WBC 13.4 H RBC 6.51 H Hct 54.7 H MCH 26.2 L MCHC 31.1 L RDW 17.3 H Carbon Dioxide 10 L* Anion Gap 27 H Glucose 140 H POC Glucose 125 H Calcium 10.3 H Magnesium 2.6 H Total Protein 9.3 H Albumin 5.3 H Urine Protein Urine Ketones Urine Blood 06/27/19 17:57 WBC RBC Hct MCH MCHC RDW Carbon Dioxide Anion Gap Glucose POC Glucose Calcium Magnesium Total Protein Albumin Urine Protein 30 H Urine Ketones TRACE H Urine Blood SMALL H Discharge - Discharge Clinical Impression: Seizure disorder Condition: Stable Disposition: HOME, SELF-CARE Additional Instructions: rest, take meds as prescribed, return if worse Referrals: ROBERT HOUSE MD [Primary Care Provider] - Follow up as needed
[2019-06-27 17:11] LABS: ABSOLUTE BASOPHILS # (AUTO) 0.1 10^3/uL (0.0-0.2); ABSOLUTE EOSINOPHILS # (AUTO) 0.1 10^3/uL (0.0-0.6); ABSOLUTE LYMPHOCYTES (AUTO) 3.9 10^3/uL (0.5-4.7); ABSOLUTE MONOCYTES (AUTO) 1.2 10^3/uL (0.1-1.4); ABSOLUTE NEUT (AUTO) 8.2 10^3/uL (1.7-8.2); BASOPHILS % (AUTO) 0.5 % (0-2); EOSINOPHILS % (AUTO) 0.6 % (0-6); HEMATOCRIT 54.7 % (37.9-51.0); LYMPHOCYTES % (AUTO) 29.2 % (13-45); MEAN CORPUSCULAR HEMOGLOBIN 26.2 pg (27.0-33.4); MEAN CORPUSCULAR HGB CONC 31.1 g/dL (32.0-36.0); MEAN CORPUSCULAR VOLUME 84 fl (80-97); MONOCYTES % (AUTO) 8.8 % (3-13); PLATELET COUNT 302 10^3/uL (150-450); RED BLOOD COUNT 6.51 10^6/uL (4.35-5.55); RED CELL DISTRIBUTION WIDTH 17.3 % (11.5-14.0); SEGMENTED NEUTROPHILS % (AUTO) 60.9 % (42-78); TOTAL CELLS COUNTED % (AUTO) 100 %; WHITE BLOOD COUNT 13.4 10^3/uL (4.0-10.5)
[2019-06-27 17:36] LABS: ALBUMIN 5.3 g/dL (3.5-5.0); ALKALINE PHOSPHATASE 114 U/L (38-126); ASPARTATE AMINO TRANSFERASE 29 U/L (17-59); BILIRUBIN,DIRECT 0.2 mg/dL (0.0-0.4); BILIRUBIN,TOTAL 0.4 mg/dL (0.2-1.3); BLOOD UREA NITROGEN 14 mg/dL (7-20); CALCIUM 10.3 mg/dL (8.4-10.2); GLUCOSE 140 mg/dL (75-110); POTASSIUM 4.9 mmol/L (3.6-5.0); TOTAL PROTEIN 9.3 g/dL (6.3-8.2)
[2019-06-27 17:41] LABS: CHLORIDE 106 mmol/L (98-107)
[2019-06-27 17:43] LABS: ALCOHOL < 10 mg/dL (NONE DETECTED); ANION GAP 27 (5-19)
[2019-06-27 17:45] LABS: CARBON DIOXIDE 10 mmol/L (22-30)
[2019-06-27 18:22] LABS: APPEARANCE,URINE CLEAR; BILIRUBIN,URINE NEGATIVE (NEGATIVE); COLOR,URINE YELLOW; GLUCOSE, URINE NEGATIVE (NEGATIVE); KETONES,URINE TRACE mg/dL (NEGATIVE); LEUKOCYTE ESTERASE,URINE NEGATIVE (NEGATIVE); NITRITE,URINE NEGATIVE (NEGATIVE); PROTEIN,URINE 30 mg/dL (NEGATIVE); URINE SPECIFIC GRAVITY 1.017; UROBILINOGEN,URINE NEGATIVE mg/dL (<2.0)
[2019-06-27 18:29] LABS: URINE AMPHETAMINES SCREEN NEGATIVE; URINE BARBITURATES SCREEN NEGATIVE; URINE BENZODIAZEPINES SCREEN UNCONFIRMED POSITIVE; URINE COCAINE SCREEN NEGATIVE; URINE MARIJUANA (THC) SCREEN NEGATIVE; URINE METHADONE SCREEN NEGATIVE; URINE PHENCYCLIDINE SCREEN NEGATIVE
[2019-06-27 18:56] VITALS: BP 152/99
== END 2019-06-27 19:21 | disposition home or self-care (01) ==
LOC: ER 16:36
DX: G40.909 Epilepsy, unspecified, not intractable, without status epilepticus (principal)
CPT/HCPCS: 36415; 80053; 80307; 81001; 82962; 83735; 85025; 99284

== ENCOUNTER 2020-02-17 23:29 | Inpatient (IN) | payer MEDICAID ==
[2020-02-17] MEDS ORDERED: LEVETIRACETAM 1000 MG/NACL-ISO 1,000 MG/100 ML RTUPB IV ONE ×2 (23:35→23:46)
[2020-02-17] MEDS ORDERED: NORMAL SALINE 1000 ML 1,000 ML IV ONE (23:46)
[2020-02-17 23:57] LABS: ABSOLUTE BASOPHILS # (AUTO) 0.1 10^3/uL (0.0-0.2); ABSOLUTE EOSINOPHILS # (AUTO) 0.1 10^3/uL (0.0-0.6); ABSOLUTE MONOCYTES (AUTO) 1.2 10^3/uL (0.1-1.4); HEMATOCRIT 54.1 % (37.9-51.0); PLATELET COUNT 329 10^3/uL (150-450); TOTAL CELLS COUNTED % (AUTO) 100 %; VENOUS BLOOD BASE EXCESS -21.8 mmol/L; VENOUS BLOOD HCO3 8.8 mmol/L (20-32); VENOUS BLOOD PCO2 35.5 mmHg (35-63)
[2020-02-18] LABS: VENOUS BLOOD PH 7.01 (7.30-7.42)
[2020-02-18 00:06] LABS: ABSOLUTE LYMPHOCYTES (AUTO) 6.6 10^3/uL (0.5-4.7); ABSOLUTE NEUT (AUTO) 7.2 10^3/uL (1.7-8.2); BASOPHILS % (AUTO) 0.5 % (0-2); EOSINOPHILS % (AUTO) 0.6 % (0-6); HEMOGLOBIN 17.3 g/dL (13.5-17.0); LYMPHOCYTES % (AUTO) 43.7 % (13-45); MEAN CORPUSCULAR HEMOGLOBIN 26.9 pg (27.0-33.4); MEAN CORPUSCULAR VOLUME 84 fl (80-97); MONOCYTES % (AUTO) 7.8 % (3-13); RED BLOOD COUNT 6.43 10^6/uL (4.35-5.55); RED CELL DISTRIBUTION WIDTH 17.6 % (11.5-14.0); SEGMENTED NEUTROPHILS % (AUTO) 47.4 % (42-78); WHITE BLOOD COUNT 15.1 10^3/uL (4.0-10.5)
[2020-02-18 00:10] LABS: ALBUMIN 5.4 g/dL (3.5-5.0); ALKALINE PHOSPHATASE 124 U/L (38-126); ASPARTATE AMINO TRANSFERASE 26 U/L (17-59); BILIRUBIN,TOTAL 0.5 mg/dL (0.2-1.3); BLOOD UREA NITROGEN 12 mg/dL (7-20); CALCIUM 10.8 mg/dL (8.4-10.2); CREATINE KINASE 233 U/L (55-170); GLUCOSE 148 mg/dL (75-110); POTASSIUM 4.2 mmol/L (3.6-5.0); TOTAL PROTEIN 9.1 g/dL (6.3-8.2)
--- NOTE | 2020-02-18 00:12 | ER Document Report ---
ED General - General Chief Complaint: Seizure Stated Complaint: SEIZURE Primary Care Provider: ROBERT HOUSE MD [Primary Care Provider] - Follow up as needed Notes: 39-year-old male brought to the emergency department by family who states he has a history of seizures and he has had 5 grand mal seizures this evening. Family states that he takes Keppra, Lamictal and a third medication that they did not recall. They state he is normally compliant with his medications. State aurelia's seizure is similar to his usual seizures, patient has been seen here for multiple seizures in a row in the past. Denies any trauma. Patient cannot give any history on arrival. Approximately 30 minutes after arrival he is now awake enough to give a history to the nurse to include that he has been taking his medications and was not feeling unwell earlier today. TRAVEL OUTSIDE OF THE [place] IN LAST 30 DAYS: No - Related Data Allergies/Adverse Reactions: No Known Allergies Allergy (Verified 02/17/20 23:48) Past Medical History - General Information source: Relative, [facility] Records Cannot obtain history due to: Altered mental status - Social History Smoking Status: Never Smoker Family History: Reviewed & Not Pertinent Patient has homicidal ideation: No Pulmonary Medical History: Denies: Hx Tuberculosis Neurological Medical History: Reports: Hx Seizures Renal/ Medical History: Denies: Hx Peritoneal Dialysis GI Medical History: Reports: Hx Gastroesophageal Reflux Disease Past Surgical History: Reports: Hx Oral Surgery, Other - Vagal nerve stimulator in 2015 - Immunizations Hx Diphtheria, Pertussis, Tetanus Vaccination: No Review of Systems - Review of Systems -: Yes ROS unobtainable due to patient's medical condition - Initially unobtainable. Physical Exam - Vital signs Vitals: Resp BP Pulse Ox 45 H 216/115 H 93 02/17/20 23:33 02/17/20 23:33 02/17/20 23:33 Interpretation: Hypertensive, Tachycardic, Tachypneic - Notes Notes: GENERAL: Postictal, staring off into space, when his name is called he will make eye contact, will follow some commands with prompting. HEAD: Normocephalic, atraumatic EYES: Pupils equal, round and reactive to light, extraocular movements intact. ENT: Oral mucosa moist, tongue midline. No oral trauma. NECK: Full range of motion, supple, trachea midline. LUNGS: Clear to auscultation bilaterally, no wheezes, rales or rhonchi, quite tachypneic despite not appearing short of breath. HEART: Tachycardic rate and rhythm, no murmurs, gallops, rubs. ABDOMEN: Soft, nontender, nondistended, bowel sounds present in all 4 quadrants. EXTREMITIES: Moves all 4 extremities spontaneously, no edema, radial and dorsalis pedis pulses 2/4 bilaterally. No cyanosis. NEUROLOGICAL: GCS E-4, V-1, M-6. No facial droop. Biceps and patellar DTRs 2+ bilaterally. SKIN: Warm, paretic normal turgor. Course - Re-evaluation Re-evalutation: 02/18/20 00:56 Patient was given a gram of Keppra, has had no further seizures here, is now awake, tells me that aside from having some pain in his left hand and arm he feels fine, feels exactly the same as usually does after seizure. States he has been taking his medications as directed, denies head injury, denies missing his medications. 02/18/20 00:58 Chest x-ray shows no acute process and no evidence of aspiration, CBC shows leukocytosis of 15.1, hemoglobin elevated at 17.3, there is likely component of hemoconcentration, venous blood gas shows a pH of 7.01, CO2 is normal, bicarb is 8.8, this is likely due to his markedly elevated lactic acid at 19. The lactic acid being elevated to 19 is likely due to 5 grand mal seizures in a row. He is also dehydrated, CO2 is low at 8. Creatinine elevated at 1.29. Calcium elevated at 10.8 EKG does not show any concerning changes given the elevated calcium. Albumin and total protein also elevated, CK reassuringly only 233. Keppra and Vimpat levels have been sent out. 02/18/20 01:11 Patient will be given LR 2 L and his venous blood gas will be rechecked. 02/18/20 01:[address] House, he is agreeable to admit the patient to his service. - Vital Signs Vital signs: Temp Pulse Resp BP Pulse Ox 99.6 F 45 H 216/115 H 96 02/17/20 23:40 02/17/20 23:33 02/17/20 23:33 02/17/20 23:52 - Laboratory Result Diagrams: 02/17/20 23:36 02/17/20 23:36 Laboratory results interpreted by me: 02/17/20 02/17/20 02/17/20 23:36 23:36 23:36 WBC 15.1 H RBC 6.43 H Hgb 17.3 H Hct 54.1 H MCH 26.9 L RDW 17.6 H Absolute Lymphs (auto) 6.6 H VBG pH 7.01 L* VBG HCO3 8.8 L Carbon Dioxide 8 L* Anion Gap 31 H Creatinine 1.29 H Glucose 148 H Lactic Acid Calcium 10.8 H Creatine Kinase 233 H Total Protein 9.1 H Albumin 5.4 H 02/17/20 23:36 WBC RBC Hgb Hct MCH RDW Absolute Lymphs (auto) VBG pH VBG HCO3 Carbon Dioxide Anion Gap Creatinine Glucose Lactic Acid 19.0 H Calcium Creatine Kinase Total Protein Albumin - EKG Interpretation by Me Additional EKG results interpreted by me: 02/18/20 00:59 EKG shows sinus tachycardia at a rate of 129, normal axis, normal intervals, no ST segment elevations or depressions, normal R wave progression per my interpretation. Critical Care Note - Critical Care Note Total time excluding time spent on procedures (mins): 35 Discharge - Discharge Clinical Impression: Recurrent seizures, Lactic acidosis, Metabolic acidosis Condition: Fair Disposition: ADMITTED INPATIENT Admitting Provider: [facility] Admitted: Telemetry Referrals: ROBERT HOUSE MD [Primary Care Provider] - Follow up as needed
[2020-02-18 00:15] LABS: CHLORIDE 102 mmol/L (98-107)
[2020-02-18 00:17] LABS: ANION GAP 31 (5-19)
[2020-02-18 00:18] LABS: CARBON DIOXIDE 8 mmol/L (22-30)
[2020-02-18] MEDS ORDERED: NORMAL SALINE 1000 ML 1,000 ML IV PRN (00:54)
--- NOTE | 2020-02-18 00:55 | RADIOLOGY REPORT (SQ) ---
CLINICAL HISTORY: seizure x 5 COMPARISON: 05/12/2017. TECHNIQUE: XR CHEST 1 VIEW 02/17/2020 11:46 PM CDT FINDINGS: Cardiac silhouette is normal in size. Lungs are clear without consolidation, atelectasis, mass or edema. There is no pleural effusion. There is no pneumothorax. There are no acute osseous findings. IMPRESSION: Clear lungs.
[2020-02-18] MEDS: RINGERS SOLUTION,LACTATED 1,000 ML IV PRN ×2 (01:00→02:03)
[2020-02-18] MEDS ORDERED: ACETAMINOPHEN 325 MG TABLET PO PRN (02:01)
[2020-02-18] MEDS ORDERED: LORAZEPAM INJ 2 MG/1 ML VIAL IV PRN (02:05)
[2020-02-18 03:06] LABS: VENOUS BLOOD BASE EXCESS -2.2 mmol/L; VENOUS BLOOD HCO3 22.4 mmol/L (20-32); VENOUS BLOOD PCO2 37.9 mmHg (35-63); VENOUS BLOOD PH 7.39 (7.30-7.42)
[2020-02-18 03:30] LABS: CREATINE KINASE MB 0.71 ng/mL (<4.55)
[2020-02-18 03:38] LABS: TROPONIN I < 0.012 ng/mL
[2020-02-18] MEDS: NORMAL SALINE 1000 ML 1,000 ML IV PRN ×2 (06:26→11:08)
--- NOTE | 2020-02-18 09:31 | EKG REPORT ---
SEVERITY:- ABNORMAL ECG - SINUS TACHYCARDIA LEFT ATRIAL ABNORMALITY BORDERLINE INFERIOR Q WAVES : Confirmed by: Jewell Pastor MD 18-Feb-2020 09:31:22
--- NOTE | 2020-02-18 09:46 | PDOC H&P ---
History of Present Illness Admission Date/PCP: 02/18/20 02:02 ROBERT HOUSE MD Patient complains of: Uncontrolled seizures metabolic acidosis History of Present Illness: MIGUEL ANGEL ALCARAZ is a 39 year old male This is a 39-year-old male's with a significant history of the grand mal seizures with the multiple medications currently see a neurology Dr. Ronnie chan also have a referral to the [facility] and multiple medicines tried in the pastBrought to the emergency department the patient having multiple seizures episodes in the emergency department patient is received the IV Keppra and then patient was fully alert awake Patient having some mentally challenge but other than that when I saw the patient is alert awake answering all questions appropriately no seizure activity Patient at this point discussed with the nursing staff to keep a close to the nursing stations because patient unable to ask for any helps due to the mental issues and may be consider to be a mother to be a stay with him Patient initial work-up including the lactic acid was elevated and patient CO2 was low most likely because of the seizures activity Patient's chest x-ray was all clear Discussed with the nursing staff to restart all patient's home medications Past Medical History Pulmonary Medical History: Denies: Tuberculosis Neurological Medical History: Reports: Seizures GI Medical History: Reports: Gastroesophageal Reflux Disease Psychiatric Medical History: Denies: Depression Past Surgical History Past Surgical History: Reports: Other - Vagal nerve stimulator in 2015 Social History Information Source: Patient Smoking Status: Never Smoker Frequency of Alcohol Use: None Hx Recreational Drug Use: No Drugs: None Hx Prescription Drug Abuse: No Family History Family History: Reviewed & Not Pertinent Parental Family History Reviewed: Yes Children Family History Reviewed: Yes Sibling(s) Family History Reviewed.: Yes Medication/Allergy Home Medications: Clobazam [Onfi] 20 mg PO Q12 05/10/17 Lamotrigine [Lamictal] 300 mg PO Q12 05/10/17 Pregabalin [Lyrica 75 mg Capsule] 75 mg PO Q12 05/10/17 Levetiracetam [Keppra 500 mg Tablet] 1,500 mg PO Q12 #60 tablet 05/14/17 Azithromycin [Zithromax 250 mg Tablet] 250 mg PO DAILY #4 tablet 02/27/18 Cefdinir [Omnicef 300 mg Capsule] 1 cap PO BID #14 capsule 02/27/18 Clobazam [Onfi] 20 mg PO BID #20 tablet 05/29/18 Lamotrigine [Lamictal 100 mg Tablet] 300 mg PO BID #60 tablet 05/29/18 Levetiracetam [Keppra 500 mg Tablet] 500 mg PO TID #30 tablet 05/29/18 Chlorpromazine HCl [Thorazine 10 Mg Tablet] 10 mg PO TID #10 tablet 06/08/18 Lamotrigine [Lamictal] 300 mg PO BID #120 tablet NS 06/08/18 Levetiracetam [Keppra 500 mg Tablet] 1,500 mg PO Q12 #120 tablet NS 06/08/18 Allergies/Adverse Reactions: No Known Allergies Allergy (Verified 02/17/20 23:48) Review of Systems Constitutional: ABSENT: chills, fever(s), headache(s), weight gain, weight loss Eyes: ABSENT: visual disturbances Ears: ABSENT: hearing changes Cardiovascular: ABSENT: chest pain, dyspnea on exertion, edema, orthropnea, p alpitations Respiratory: ABSENT: cough, hemoptysis Gastrointestinal: ABSENT: abdominal pain, constipation, diarrhea, hematemesis, hematochezia, nausea, vomiting Genitourinary: ABSENT: dysuria, hematuria Musculoskeletal: ABSENT: joint swelling Integumentary: ABSENT: rash, wounds Neurological: ABSENT: abnormal gait, abnormal speech, confusion, dizziness, focal weakness, syncope Psychiatric: ABSENT: anxiety, depression, homidical ideation, suicidal ideation Endocrine: ABSENT: cold intolerance, heat intolerance, menstrual abnormalities, polydipsia, polyuria Hematologic/Lymphatic: ABSENT: easy bleeding, easy bruising, lymphadenopathy Physical Exam Vital Signs: Temp Pulse Resp BP Pulse Ox 98.0 F 77 20 162/98 H 97 02/18/20 04:30 02/18/20 05:46 02/18/20 04:30 02/18/20 04:30 02/18/20 04:30 Intake & Output 02/17/20 02/18/20 02/19/20 06:59 06:59 06:59 Intake Total 3100 Balance 3100 Weight 107 kg General appearance: PRESENT: no acute distress, well-developed, well-nourished Head exam: PRESENT: atraumatic, normocephalic Eye exam: PRESENT: conjunctiva pink, EOMI, PERRLA. ABSENT: scleral icterus Ear exam: PRESENT: normal external ear exam Mouth exam: PRESENT: moist, tongue midline Neck exam: PRESENT: full ROM. ABSENT: carotid bruit, JVD, lymphadenopathy, thyromegaly Respiratory exam: PRESENT: clear to auscultation fabricio Cardiovascular exam: PRESENT: RRR. ABSENT: diastolic murmur, rubs, systolic murmur Pulses: PRESENT: normal dorsalis pedis pul, +2 pedal pulses bilateral Vascular exam: PRESENT: normal capillary refill GI/Abdominal exam: PRESENT: normal bowel sounds, soft. ABSENT: distended, guarding, mass, organolmegaly, rebound, tenderness Rectal exam: PRESENT: deferred Neurological exam: PRESENT: alert, awake, oriented to person, oriented to place, oriented to time, oriented to situation, CN II-XII grossly intact. ABSENT: motor sensory deficit Psychiatric exam: PRESENT: appropriate affect, normal mood. ABSENT: homicidal ideation, suicidal ideation Skin exam: PRESENT: dry, intact, warm. ABSENT: cyanosis, rash Results Laboratory Results: 02/17/20 02/17/20 02/17/20 23:36 23:36 23:36 WBC 15.1 H RBC 6.43 H Hgb 17.3 H Hct 54.1 H MCV 84 MCH 26.9 L MCHC 32.0 RDW 17.6 H Plt Count 329 Seg Neutrophils % 47.4 VBG pH 7.01 L* VBG pCO2 35.5 VBG HCO3 8.8 L VBG Base Excess -21.8 Sodium 140.8 Potassium 4.2 Chloride 102 Carbon Dioxide 8 L* Anion Gap 31 H BUN 12 Creatinine 1.29 H Est GFR ( Amer) > 60 Glucose 148 H Lactic Acid Calcium 10.8 H Total Bilirubin 0.5 AST 26 Alkaline Phosphatase 124 Total Protein 9.1 H Albumin 5.4 H 02/17/20 02/18/20 02/18/20 23:36 02:50 02:50 WBC RBC Hgb Hct MCV MCH MCHC RDW Plt Count Seg Neutrophils % VBG pH 7.39 VBG pCO2 37.9 VBG HCO3 22.4 VBG Base Excess -2.2 Sodium Potassium Chloride Carbon Dioxide Anion Gap BUN Creatinine Est GFR ( Amer) Glucose Lactic Acid 19.0 H 2.1 Calcium Total Bilirubin AST Alkaline Phosphatase Total Protein Albumin 02/17/20 02/17/20 02/18/20 23:36 23:36 02:40 Creatine Kinase 233 H CK-MB (CK-2) Cancelled 0.71 Troponin I Cancelled < 0.012 02/18/20 03:31 Creatine Kinase CK-MB (CK-2) Troponin I < 0.012 Impressions: Chest X-Ray 02/17/20 23:46 IMPRESSION: Clear lungs. Assessment & Plan - Diagnosis (1) Recurrent seizures Is this a current diagnosis for this admission?: Yes Plan: Will continues IV Keppra continues the p.o. other medications I think patient have a significant issue with that one recently seen the neurology also have upcoming appointment to see the [facility] patient already have a vagal stimulator (2) Lactic acidosis Is this a current diagnosis for this admission?: Yes Plan: I do think should patient have any sign of sepsis most likely due to the seizures activity we will repeat the lactic acids will redraw the blood culture (3) Metabolic acidosis Is this a current diagnosis for this admission?: Yes Plan: Continues the IV fluids we will repeat the Chem-7 again (4) Developmental delay, moderate Is this a current diagnosis for this admission?: Yes - Time Time Spent: 50 to 70 Minutes Medications reviewed and adjusted accordingly: Yes Anticipated discharge: Home Within: Other - Inpatient Certification Based on my medical assessment, after consideration of the patient's com orbidities, presenting symptoms, or acuity I expect that the services needed warrant INPATIENT care.: Yes I certify that my determination is in accordance with my understanding of Medicare's requirements for reasonable and necessary INPATIENT services [42 CFR 412.3e].: Yes Medical Necessity: Failure to Improve With Outpatient Therapy, Significant Comorbidiites Make Outpatient Treatment Too Risky, Need For IV Fluids Post Hospital 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 while in the hospital Seizures precautions fall precautions Will rule out the any sign of infections which is unlikely Continues to IV fluid
[2020-02-18 09:50] LABS: BLOOD UREA NITROGEN 8 mg/dL (7-20); CHLORIDE 104 mmol/L (98-107); GLUCOSE 103 mg/dL (75-110)
[2020-02-18 09:57] LABS: ANION GAP 8 (5-19)
[2020-02-18 10:02] LABS: CARBON DIOXIDE 24 mmol/L (22-30)
[2020-02-18] MEDS: LEVETIRACETAM 1500 MG/NACL-ISO 1,500 MG/100 ML RTUPB IV SCH ×2 (11:13→21:22)
[2020-02-18 11:19] LABS: ABSOLUTE BASOPHILS # (AUTO) 0.1 10^3/uL (0.0-0.2); ABSOLUTE LYMPHOCYTES (AUTO) 2.1 10^3/uL (0.5-4.7); ABSOLUTE MONOCYTES (AUTO) 0.6 10^3/uL (0.1-1.4); ABSOLUTE NEUT (AUTO) 5.9 10^3/uL (1.7-8.2); BASOPHILS % (AUTO) 0.9 % (0-2); EOSINOPHILS % (AUTO) 0.5 % (0-6); HEMATOCRIT 46.1 % (37.9-51.0); HEMOGLOBIN 15.4 g/dL (13.5-17.0); LYMPHOCYTES % (AUTO) 23.7 % (13-45); MEAN CORPUSCULAR HEMOGLOBIN 26.7 pg (27.0-33.4); MEAN CORPUSCULAR HGB CONC 33.3 g/dL (32.0-36.0); MONOCYTES % (AUTO) 6.7 % (3-13); PLATELET COUNT 270 10^3/uL (150-450); RED BLOOD COUNT 5.75 10^6/uL (4.35-5.55); RED CELL DISTRIBUTION WIDTH 17.4 % (11.5-14.0); SEGMENTED NEUTROPHILS % (AUTO) 68.2 % (42-78); TOTAL CELLS COUNTED % (AUTO) 100 %; WHITE BLOOD COUNT 8.7 10^3/uL (4.0-10.5)
[2020-02-18 11:39] LABS: MEAN CORPUSCULAR VOLUME 80 fl (80-97)
[2020-02-18 11:40] LABS: ANISOCYTOSIS 1+; PLATELET COMMENT ADEQUATE; POLYCHROMASIA SLIGHT
[2020-02-18] MEDS: LAMOTRIGINE 100 MG TABLET PO SCH (17:44)
[2020-02-18] MEDS ORDERED: CLOBAZAM 20 MG PO SCH (18:00)
[2020-02-18] MEDS: CLOBAZAM 20 MG PO SCH (21:23)
[2020-02-19 00:10] VITALS: BP 138/88
[2020-02-19 05:55] LABS: ABSOLUTE LYMPHOCYTES (AUTO) 2.4 10^3/uL (0.5-4.7); ABSOLUTE MONOCYTES (AUTO) 0.7 10^3/uL (0.1-1.4); ABSOLUTE NEUT (AUTO) 4.3 10^3/uL (1.7-8.2); BASOPHILS % (AUTO) 0.5 % (0-2); EOSINOPHILS % (AUTO) 0.4 % (0-6); HEMATOCRIT 47.2 % (37.9-51.0); HEMOGLOBIN 15.9 g/dL (13.5-17.0); LYMPHOCYTES % (AUTO) 32.5 % (13-45); MEAN CORPUSCULAR HEMOGLOBIN 26.9 pg (27.0-33.4); MEAN CORPUSCULAR HGB CONC 33.8 g/dL (32.0-36.0); MEAN CORPUSCULAR VOLUME 80 fl (80-97); MONOCYTES % (AUTO) 8.7 % (3-13); PLATELET COUNT 249 10^3/uL (150-450); RED BLOOD COUNT 5.92 10^6/uL (4.35-5.55); RED CELL DISTRIBUTION WIDTH 17.8 % (11.5-14.0); SEGMENTED NEUTROPHILS % (AUTO) 57.9 % (42-78); TOTAL CELLS COUNTED % (AUTO) 100 %; WHITE BLOOD COUNT 7.5 10^3/uL (4.0-10.5)
[2020-02-19 06:00] LABS: ALBUMIN 4.1 g/dL (3.5-5.0); ALKALINE PHOSPHATASE 112 U/L (38-126); ANION GAP 8 (5-19); ASPARTATE AMINO TRANSFERASE 19 U/L (17-59); BILIRUBIN,TOTAL 0.6 mg/dL (0.2-1.3); BLOOD UREA NITROGEN 6 mg/dL (7-20); CALCIUM 9.3 mg/dL (8.4-10.2); CARBON DIOXIDE 23 mmol/L (22-30); CHLORIDE 105 mmol/L (98-107); GLUCOSE 98 mg/dL (75-110); TOTAL PROTEIN 7.2 g/dL (6.3-8.2)
[2020-02-19 06:22] LABS: ANISOCYTOSIS 1+; BURR CELLS SLIGHT; HYPOCHROMASIA SLIGHT; OVALOCYTES SLIGHT; POLYCHROMASIA SLIGHT; TOXIC GRANULATION SLIGHT; TOXIC VACUOLATION PRESENT
[2020-02-19 06:23] LABS: PLATELET COMMENT ADEQUATE
[2020-02-19] MEDS: LAMOTRIGINE 100 MG TABLET PO SCH (09:25)
[2020-02-19] MEDS: CLOBAZAM 20 MG PO SCH (09:26)
[2020-02-19] MEDS: LEVETIRACETAM 1500 MG/NACL-ISO 1,500 MG/100 ML RTUPB IV SCH (09:26)
--- NOTE | 2020-02-19 12:31 | PDOC DISCHARGE SUMMARY ---
Impression - Admit/DC Date/PCP Admission Date/Primary Care Provider: 02/18/20 02:02 ROBERT HOUSE MD Discharge Date: 02/19/20 - Discharge Diagnosis (1) Recurrent seizures Is this a current diagnosis for this admission?: Yes (2) Lactic acidosis Is this a current diagnosis for this admission?: Yes (3) Metabolic acidosis Is this a current diagnosis for this admission?: Yes (4) Developmental delay, moderate Is this a current diagnosis for this admission?: Yes - Additional Information Discharge Diet: Regular Discharge Activity: Activity As Tolerated Referrals: ROBERT HOUSE MD [Primary Care Provider] - 02/26/20 11:45 am Home Medications: Levetiracetam [Keppra 500 mg Tablet] 1,500 mg PO Q12 #60 tablet 05/14/17 Clobazam [Onfi] 20 mg PO BID #20 tablet 05/29/18 Lamotrigine [Lamictal 100 mg Tablet] 300 mg PO BID #60 tablet 05/29/18 History of Present Illiness History of Present Illness: MIGUEL ANGEL ALCARAZ is a 39 year old male This is a 39-year-old male's with a significant history of the grand mal seizures with the multiple medications currently see a neurology Dr. Ronnie chan also have a referral to the [facility] and multiple medicines tried in the pastBrought to the emergency department the patient having multiple seizures episodes in the emergency department patient is received the IV Keppra and then patient was f ully alert awake Patient having some mentally challenge but other than that when I saw the patient is alert awake answering all questions appropriately no seizure activity Patient at this point discussed with the nursing staff to keep a close to the nursing stations because patient unable to ask for any helps due to the mental issues and may be consider to be a mother to be a stay with him Patient initial work-up including the lactic acid was elevated and patient CO2 was low most likely because of the seizures activity Patient's chest x-ray was all clear Discussed with the nursing staff to restart all patient's home medications Hospital Course Hospital Course: This is a 39-year-old male admitting in the hospital for the recurrent seizures activity patient is also found some metabolic acidosis and elevated lactic acid most likely due to the seizures activity Patient was started on IV fluid IV Keppra restart all his p.o. medications and repeat the blood work is all stable Patient with no seizures activity during the hospitalization switch to the all the p.o. medications and patient have appointment to see a neurology with ongoing problem with uncontrolled seizures tomorrow Is back to the baseline discussed with the mother on the bedside regarding the patient's current conditions close follow-up with the neurology seizures precautions and take the medicines timely manner Patient was some mental challenge and according to the mother she put the medicines in the patient's pillbox and patient usually take the medicines but I think at this point discussed with the mother to make sure that patients take the medicine the front of her this point we know that patient have this medicines in the system Physical Exam Vital Signs: Temp Pulse Resp BP Pulse Ox 98.6 F 90 18 138/88 H 98 02/19/20 09:21 02/19/20 09:21 02/19/20 09:21 02/19/20 09:21 02/19/20 09:21 Intake & Output 02/18/20 02/19/20 02/20/20 06:59 06:59 06:59 Intake Total 3100 1913 100 Balance 3100 1913 100 Weight 107 kg 107 kg General appearance: PRESENT: no acute distress, well-developed, well-nourished Head exam: PRESENT: atraumatic, normocephalic Eye exam: PRESENT: conjunctiva pink, EOMI, PERRLA. ABSENT: scleral icterus Ear exam: PRESENT: normal external ear exam Mouth exam: PRESENT: moist, tongue midline Neck exam: ABSENT: carotid bruit, JVD, lymphadenopathy, thyromegaly Respiratory exam: PRESENT: clear to auscultation fabricio. ABSENT: rales, rhonchi, wheezes Cardiovascular exam: PRESENT: RRR. ABSENT: diastolic murmur, rubs, systolic murmur Pulses: PRESENT: normal dorsalis pedis pul Vascular exam: PRESENT: normal capillary refill GI/Abdominal exam: PRESENT: normal bowel sounds, soft. ABSENT: distended, guarding, mass, organolmegaly, rebound, tenderness Rectal exam: PRESENT: deferred Extremities exam: PRESENT: full ROM. ABSENT: calf tenderness, clubbing, pedal edema Neurological exam: PRESENT: alert, awake, oriented to person, oriented to place, oriented to time, oriented to situation, CN II-XII grossly intact. ABSENT: motor sensory deficit Psychiatric exam: PRESENT: appropriate affect, normal mood. ABSENT: homicidal ideation, suicidal ideation Skin exam: PRESENT: dry, intact, warm. ABSENT: cyanosis, rash Results Laboratory Results: WBC 7.5 10^3/uL (4.0-10.5) 02/19/20 05:27 RBC 5.92 10^6/uL (4.35-5.55) H 02/19/20 05:27 Hgb 15.9 g/dL (13.5-17.0) 02/19/20 05:27 Hct 47.2 % (37.9-51.0) 02/19/20 05:27 MCV 80 fl (80-97) 02/19/20 05:27 MCH 26.9 pg (27.0-33.4) L 02/19/20 05:27 MCHC 33.8 g/dL (32.0-36.0) 02/19/20 05:27 RDW 17.8 % (11.5-14.0) H 02/19/20 05:27 Plt Count 249 10^3/uL (150-450) 02/19/20 05:27 Lymph % (Auto) 32.5 % (13-45) 02/19/20 05:27 Jack % (Auto) 8.7 % (3-13) 02/19/20 05:27 Eos % (Auto) 0.4 % (0-6) 02/19/20 05:27 Baso % (Auto) 0.5 % (0-2) 02/19/20 05:27 Absolute Neuts (auto) 4.3 10^3/uL (1.7-8.2) 02/19/20 05:27 Absolute Lymphs (auto) 2.4 10^3/uL (0.5-4.7) 02/19/20 05:27 Absolute Monos (auto) 0.7 10^3/uL (0.1-1.4) 02/19/20 05:27 Absolute Eos (auto) 0.0 10^3/uL (0.0-0.6) 02/19/20 05:27 Absolute Basos (auto) 0.0 10^3/uL (0.0-0.2) 02/19/20 05:27 Seg Neutrophils % 57.9 % (42-78) 02/19/20 05:27 Toxic Granulation SLIGHT 02/19/20 05:27 Toxic Vacuolation PRESENT 02/19/20 05:27 Platelet Estimate Cancelled 02/18/20 08:56 Platelet Comment ADEQUATE 02/19/20 05:27 Polychromasia SLIGHT 02/19/20 05:27 Hypochromasia SLIGHT 02/19/20 05:27 Anisocytosis 1+ 02/19/20 05:27 Ovalocytes SLIGHT 02/19/20 05:27 [place] Cells SLIGHT 02/19/20 05:27 VBG pH 7.39 (7.30-7.42) 02/18/20 02:50 VBG pCO2 37.9 mmHg (35-63) 02/18/20 02:50 VBG HCO3 22.4 mmol/L (20-32) 02/18/20 02:50 VBG Base Excess -2.2 mmol/L 02/18/20 02:50 Sodium 135.9 mmol/L (137-145) L 02/19/20 05:27 Potassium 4.0 mmol/L (3.6-5.0) 02/19/20 05:27 Chloride 105 mmol/L (98-107) 02/19/20 05:27 Carbon Dioxide 23 mmol/L (22-30) 02/19/20 05:27 Anion Gap 8 (5-19) 02/19/20 05:27 BUN 6 mg/dL (7-20) L 02/19/20 05:27 Creatinine 0.81 mg/dL (0.52-1.25) 02/19/20 05:27 Est GFR ( Amer) > 60 (>60) 02/19/20 05:27 Est GFR (MDRD) Non-Af > 60 (>60) 02/19/20 05:27 Glucose 98 mg/dL (75-110) 02/19/20 05:27 Lactic Acid 0.9 mmol/L (0.7-2.1) 02/18/20 08:56 Calcium 9.3 mg/dL (8.4-10.2) 02/19/20 05:27 Total Bilirubin 0.6 mg/dL (0.2-1.3) 02/19/20 05:27 Direct Bilirubin 0.0 mg/dL (0.0-0.4) 02/19/20 05:27 Neonat Total Bilirubin Not Reportable 02/19/20 05:27 Neonat Direct Bilirubin Not Reportable 02/19/20 05:27 Neonat Indirect Bili Not Reportable 02/19/20 05:27 AST 19 U/L (17-59) 02/19/20 05:27 ALT 25 U/L (<50) 02/19/20 05:27 Alkaline Phosphatase 112 U/L (38-126) 02/19/20 05:27 Creatine Kinase 233 U/L (55-170) H 02/17/20 23:36 CK-MB (CK-2) 0.71 ng/mL (<4.55) 02/18/20 02:40 Troponin I < 0.012 ng/mL 02/18/20 03:31 Total Protein 7.2 g/dL (6.3-8.2) 02/19/20 05:27 Albumin 4.1 g/dL (3.5-5.0) 02/19/20 05:27 Slides for Path Review Cancelled 02/18/20 08:56 02/17/20 02/18/20 02/18/20 23:36 02:40 03:31 CK-MB (CK-2) Cancelled 0.71 Troponin I Cancelled < 0.012 < 0.012 Impressions: Chest X-Ray 02/17/20 23:46 IMPRESSION: Clear lungs. Plan Time Spent: Greater than 30 Minutes - Discussed with the mother follow tomorrow with the neurology follow in office 1 week Stroke Is this a Stroke Patient?: No Acute Heart Failure - Is this a Heart Failure Patient?: No
== END 2020-02-19 10:15 | disposition home or self-care (01) | DRG 100 ==
LOC: ER 23:29 → EH 02-18 02:02 → 4N 02-18 04:25
PROVIDERS: ADMIT Family Medicine; ATTEND Family Medicine
DX: G40.909 Epilepsy, unspecified, not intractable, without status epilepticus (principal); R40.2212 Coma scale, best verbal response, none, at arrival to emergency department; E87.2 Acidosis; K21.9 Gastro-esophageal reflux disease without esophagitis; G40.409 Other generalized epilepsy and epileptic syndromes, not intractable, without status epilepticus; R40.2362 Coma scale, best motor response, obeys commands, at arrival to emergency department; R40.2142 Coma scale, eyes open, spontaneous, at arrival to emergency department; F71 Moderate intellectual disabilities; E86.0 Dehydration; Z79.899 Other long term (current) drug therapy
CPT/HCPCS: 36415; 71045; 80048; 80053; 80175; 80177; 82550; 82553; 82803; 83605; 84484; 85025; 87040; 93005; 93010; 96361; 96374; 99285; J1953; J3490; J7030; J7120

== ENCOUNTER 2020-05-01 07:43 | Inpatient (IN) | payer MEDICAID ==
--- NOTE | 2020-05-01 13:42 | ER Document Report ---
ED General - General Chief Complaint: Fall Injury Stated Complaint: FALL/LACERATION TO BACK OF HEAD Notes: 39-year-old male with possible history of seizures presenting today with seizure-like activity starting at 7 AM. He was brought via his mother. He did hit his head earlier due to his seizure. His mom is at bedside. She states that she found him twitching, having jerking like activities. She states that he takes Keppra, Lamictal and onfi. States he is compliant with his medications. Has wound on back of head. States that the patient's been having seizure-like activity since this morning. Patient is responsive to verbal stimuli, will respond in one word answers. Appears somnolent. Easily arousable. Eyes are responsive. Speaks in one-word answers at this time. Is aware he is in the hospital. At times he takes moments to respond to you. Is having intermittent hand twitching and full body twitches followed by seconds of post ictal state. Sees [facility] for seizure care. Has an appointment scheduled for monday. Has a vagus nerve stimulator. TRAVEL OUTSIDE OF THE [place] IN LAST 30 DAYS: No - Related Data Allergies/Adverse Reactions: No Known Allergies Allergy (Verified 05/01/20 08:29) Home Medications: seizure Past Medical History - Social History Smoking Status: Never Smoker Chew tobacco use (# tins/day): No Frequency of alcohol use: None Drug Abuse: None Family History: Reviewed & Not Pertinent Patient has homicidal ideation: No Pulmonary Medical History: Denies: Hx Tuberculosis Neurological Medical History: Reports: Hx Seizures Renal/ Medical History: Denies: Hx Peritoneal Dialysis GI Medical History: Reports: Hx Gastroesophageal Reflux Disease Psychiatric Medical History: Denies: Hx Depression Past Surgical History: Reports: Hx Oral Surgery, Other - Vagal nerve stimulator in 2015 - Immunizations Hx Diphtheria, Pertussis, Tetanus Vaccination: No Review of Systems - Review of Systems -: Yes ROS unobtainable due to patient's medical condition Physical Exam - Vital signs Vitals: Temp Pulse Resp BP Pulse Ox 98.6 F 79 16 157/96 H 95 05/01/20 07:49 05/01/20 07:49 05/01/20 07:49 05/01/20 07:49 05/01/20 07:49 Interpretation: Hypertensive, Tachycardic, Tachypneic - Notes Notes: Adult General: GENERAL: Postictal. Responsive to verbal stimuli and commands. GCS: [id number] HEAD: Normocephalic, 1.5 cm superficial laceration to right lower back of head. bleeding controlled. EYES: Pupils equal, round and reactive to light. Extraocular movements intact. ENT: Oral mucosa moist, tongue midline. Oropharynx unremarkable. Airway patent. Nares patent. NECK: Full range of motion. Supple. Trachea midline. No lymphadenopathy. LUNGS: Clear to auscultation bilaterally, no wheezes, rales, or rhonchi. No respiratory distress. Nontender chest wall. HEART: Regular rate and rhythm. No murmurs, rubs or gallops. ABDOMEN: Soft, nontender. Nondistended. (-) Winfield sign. Bowel sounds present in all 4 quadrants. No rebound, guarding or masses. GENITOURINARY: Deferred EXTREMITIES: Moves all 4 extremities when instructed. No edema, normal radial and dorsal pedis pulses bilaterally. No cyanosis. BACK: Normal distal neurovascular exam. Moves all extremities with full range of motion when instructed. NEUROLOGICAL: Arousable to verbal commands. Limited speech. Cranial nerves II through XII grossly intact. Strength 5/ 5 in all extremities. PSYCH: Normal affect, normal mood. SKIN: See above Course - Re-evaluation Re-evalutation: 05/01/20 16:29 Patient's chest x-ray shows no acute radiographical findings does show low lung volumes. CT scan shows no masses, no hemorrhages, no midline shift. His labs of also come back unremarkable at this time. Still pending a lactic acid and VBG. Patient remains mildly tachycardic at 100-1 05, respiratory rate remains around 20-22 he is room air 100%. Patient remains arousable. His mother states he was still having additional jerking like movements. States they have decreased in intensity. Patient still only answering in one-word answers. Remains to be responsive to commands. 05/01/20 17:52 Called hospitalist Fidencio Lacey. Has concerns as patient is on 3 antiepiletic medications medications and new presentation of seizures and that we have no neurologists, recommends calling other facilities at this time for recommendations and possible transfer. I called [facility] who states they are not accepting any transfers at this time unless acute stroke patients. I will call pete. Pete is also not accepting any patients unless acute stroke patients. 05/01/20 19:15 I was notified that patient had another seizure. Is now more tachypneic, more tachycardic. Fluctuing between 24-40 for RR. HR ranges from 120-140. Patient was placed on 4L Nasal Cannula. Keppra ordered for patient. Hospitalist has concerns that patient may meet icu criteria. Bipap ordered. I called the ICU provider and was forwarded to the ICU desk. They inform me that the provider is admitting another patient at this time and I will receive a call back. I had Dr. Garcia see the patient. repeat EKG shows sinus tachycardia at 142, pr interval of 132, qtc of 449. 500ml bolus of fluid ordered. 05/01/20 21:33 I discussed case with the ICU rotary drier feeder Phong ORDOÑEZ. He agrees to admit the patient. I discussed ordering a CTA to evaluate for PE. He is in agreeance with this. Was notified by nurse that rotary drier feeder wants patient off bipap. Is currently on nasal cannula. Current SP02 is 96. Heart rate remains in the 130's. RR is the upper 20's. 05/01/20 22:20 CTA shows suboptimal contrast but no large or central PE noted. Atelectasis was noted in each lung base. Patient has a room assignment. Will be admitted. - Vital Signs Vital signs: Temp Pulse Resp BP Pulse Ox 98.4 F 92 30 H 166/104 H 98 05/01/20 09:51 05/01/20 09:51 05/01/20 21:07 05/01/20 21:07 05/01/20 21:07 - Laboratory Result Diagrams: 05/01/20 13:59 05/01/20 13:59 Laboratory results interpreted by me: 05/01/20 05/01/20 05/01/20 13:59 13:59 16:45 RBC 6.45 H Hgb 17.3 H Hct 52.2 H MCH 26.8 L RDW 17.4 H BUN 5 L Total Protein 8.5 H Urine Blood SMALL H - EKG Interpretation by Me Additional EKG results interpreted by me: 05/01/20 16:28 EKG shows sinus tachycardia, WV interval of 164, QT 344, normal axis, no ST segment elevations or depressions. Discharge - Discharge Clinical Impression: Seizure Disposition: ADMITTED INPATIENT Admitting Provider: Seth (Fuel Dock Attendant) Unit Admitted: ICU
[2020-05-01] MEDS ORDERED: LORAZEPAM INJ 2 MG/1 ML VIAL IV ONE ×3 (13:55→15:32)
[2020-05-01 14:15] LABS: ABSOLUTE BASOPHILS # (AUTO) 0.1 10^3/uL (0.0-0.2); ABSOLUTE LYMPHOCYTES (AUTO) 1.6 10^3/uL (0.5-4.7); ABSOLUTE MONOCYTES (AUTO) 0.6 10^3/uL (0.1-1.4); ABSOLUTE NEUT (AUTO) 5.4 10^3/uL (1.7-8.2); BASOPHILS % (AUTO) 0.8 % (0-2); EOSINOPHILS % (AUTO) 0.2 % (0-6); HEMATOCRIT 52.2 % (37.9-51.0); HEMOGLOBIN 17.3 g/dL (13.5-17.0); LYMPHOCYTES % (AUTO) 21.2 % (13-45); MEAN CORPUSCULAR HEMOGLOBIN 26.8 pg (27.0-33.4); MEAN CORPUSCULAR HGB CONC 33.2 g/dL (32.0-36.0); MEAN CORPUSCULAR VOLUME 81 fl (80-97); MONOCYTES % (AUTO) 7.8 % (3-13); PLATELET COUNT 271 10^3/uL (150-450); RED BLOOD COUNT 6.45 10^6/uL (4.35-5.55); RED CELL DISTRIBUTION WIDTH 17.4 % (11.5-14.0); TOTAL CELLS COUNTED % (AUTO) 100 %; WHITE BLOOD COUNT 7.6 10^3/uL (4.0-10.5)
[2020-05-01 14:39] LABS: ALKALINE PHOSPHATASE 119 U/L (38-126); ANION GAP 11 (5-19); ASPARTATE AMINO TRANSFERASE 24 U/L (17-59); BILIRUBIN,DIRECT 0.1 mg/dL (0.0-0.4); BILIRUBIN,TOTAL 0.6 mg/dL (0.2-1.3); BLOOD UREA NITROGEN 5 mg/dL (7-20); CALCIUM 9.8 mg/dL (8.4-10.2); CARBON DIOXIDE 26 mmol/L (22-30); CHLORIDE 102 mmol/L (98-107); GLUCOSE 103 mg/dL (75-110); POTASSIUM 4.2 mmol/L (3.6-5.0); TOTAL PROTEIN 8.5 g/dL (6.3-8.2)
[2020-05-01 14:41] LABS: ALCOHOL < 10 mg/dL (NONE DETECTED)
--- NOTE | 2020-05-01 14:52 | RADIOLOGY REPORT (SQ) ---
EXAM DESCRIPTION: CHEST SINGLE VIEW IMAGES COMPLETED DATE/TIME: 05/01/2020 2:36 pm REASON FOR STUDY: seizure COMPARISON: 02/18/2020 EXAM PARAMETERS: NUMBER OF VIEWS: One view. TECHNIQUE: Single frontal radiographic view of the chest acquired. RADIATION DOSE: NA LIMITATIONS: None. FINDINGS: LUNGS AND PLEURA: Low lung volumes. No focal airspace disease, pleural effusion or pneumo thorax. MEDIASTINUM AND HILAR STRUCTURES: No masses. Contour normal. HEART AND VASCULAR STRUCTURES: Heart normal in size. Normal vasculature. BONES: No acute findings. HARDWARE: Loop recorder overlies left chest. OTHER: No other significant finding. IMPRESSION: NO ACUTE RADIOGRAPHIC FINDING IN THE CHEST. TECHNICAL DOCUMENTATION: JOB ID: [id number] 2010 [employer]- All Rights Reserved Reading location - IP/workstation name: [email or web address]
[2020-05-01] MEDS ORDERED: NORMAL SALINE 1000 ML 1,000 ML IV ONE (15:31)
--- NOTE | 2020-05-01 16:03 | RADIOLOGY REPORT (SQ) ---
EXAM DESCRIPTION: CT HEAD WITHOUT IMAGES COMPLETED DATE/TIME: 05/01/2020 3:40 pm REASON FOR STUDY: seizure like activity COMPARISON: 02/24/2018 TECHNIQUE: Axial images acquired through the brain without intravenous contrast. Images reviewed wi th bone, brain and subdural windows. Additional sagittal and coronal reconstructions were generated. Images stored on PACS. All CT scanners at this facility use dose modulation, iterative reconstruction, and/or weight based d osing when appropriate to reduce radiation dose to as low as reasonably achievable (ALARA). [facility]: Dose Right [facility]: CareDose [facility]: Dose Right [facility]: Teradose 4D [facility]: Cmed RADIATION DOSE: CT Rad equipment meets quality standard of care and radiation dose reduction techniq ues were employed. CTDIvol: 53.2 mGy. DLP: 1070 mGy-cm. mGy. LIMITATIONS: None. FINDINGS: VENTRICLES: Normal size and contour. CEREBRUM: No masses. No hemorrhage. No midline shift. No evidence for acute infarction. Normal gra y/white matter differentiation. No areas of low density in the white matter. CEREBELLUM: No masses. No hemorrhage. No alteration of density. No evidence for acute infarction. EXTRAAXIAL SPACES: No fluid collections. No masses. ORBITS AND GLOBE: No intra- or extraconal masses. Normal contour of globe without masses. CALVARIUM: No fracture. PARANASAL SINUSES: No fluid or mucosal thickening. SOFT TISSUES: No mass or hematoma. OTHER: No other significant finding. IMPRESSION: NO ACUTE INTRACRANIAL IMAGING FINDINGS. EVIDENCE OF ACUTE STROKE: NO. COMMENT: Quality ID # 436: Final reports with documentation of one or more dose reduction techniques (e.g., Automated exposure control, adjustment of the mA and/or kV according to patient size, use of iterative reconstruction technique) TECHNICAL DOCUMENTATION: JOB ID: [id number] 2010 [email or web address]- All Rights Reserved Reading location - IP/workstation name: [email or web address]
[2020-05-01 17:03] LABS: VENOUS BLOOD BASE EXCESS 0.1 mmol/L; VENOUS BLOOD PCO2 46.1 mmHg (35-63); VENOUS BLOOD PH 7.37 (7.30-7.42)
[2020-05-01 17:41] LABS: APPEARANCE,URINE CLEAR; BILIRUBIN,URINE NEGATIVE (NEGATIVE); COLOR,URINE YELLOW; GLUCOSE, URINE NEGATIVE (NEGATIVE); KETONES,URINE NEGATIVE (NEGATIVE); LEUKOCYTE ESTERASE,URINE NEGATIVE (NEGATIVE); NITRITE,URINE NEGATIVE (NEGATIVE); PROTEIN,URINE NEGATIVE (NEGATIVE); UROBILINOGEN,URINE NEGATIVE mg/dL (<2.0)
[2020-05-01 17:51] LABS: URINE AMPHETAMINES SCREEN NEGATIVE; URINE BARBITURATES SCREEN NEGATIVE; URINE BENZODIAZEPINES SCREEN NEGATIVE; URINE COCAINE SCREEN NEGATIVE; URINE MARIJUANA (THC) SCREEN NEGATIVE; URINE METHADONE SCREEN NEGATIVE; URINE PHENCYCLIDINE SCREEN NEGATIVE
[2020-05-01] MEDS ORDERED: LEVETIRACETAM 1000 MG/NACL-ISO 1,000 MG/100 ML RTUPB IV ONE (18:48)
--- NOTE | 2020-05-01 19:54 | RADIOLOGY REPORT (SQ) ---
EXAM DESCRIPTION: CHEST SINGLE VIEW IMAGES COMPLETED DATE/TIME: 05/01/2020 7:39 pm REASON FOR STUDY: hypoxia COMPARISON: 05/01/2020 EXAM PARAMETERS: NUMBER OF VIEWS: One view. TECHNIQUE: Single frontal radiographic view of the chest acquired. RADIATION DOSE: NA LIMITATIONS: None. FINDINGS: LUNGS AND PLEURA: No opacities, masses or pneumothorax. No pleural effusion. MEDIASTINUM AND HILAR STRUCTURES: No masses. Contour normal. HEART AND VASCULAR STRUCTURES: Heart normal in size. Normal vasculature. BONES: No acute findings. HARDWARE: None in the chest. OTHER: No other significant finding. IMPRESSION: NO ACUTE RADIOGRAPHIC FINDING IN THE CHEST. TECHNICAL DOCUMENTATION: JOB ID: [id number] 2010 [employer]- All Rights Reserved Reading location - IP/workstation name: [email or web address]
--- NOTE | 2020-05-01 22:17 | RADIOLOGY REPORT (SQ) ---
EXAM DESCRIPTION: CT CHEST ANGIOGRAPHY WITHOUT THEN WITH IV CONTRAST COMPLETED DATE/TME: 05/01/2020 19:42 CLINICAL HISTORY: 39 years, Male, tachycardic, tachypneic COMPARISON: None. TECHNIQUE: 429 Images stored on PACS. All CT scanners at this facility use dose modulation, iterative reconstruction, and/or weight based dosing when appropriate to reduce radiation dose to as low as reasonably achievable (ALARA). Axial CTA images of the chest with coronal and sagittal MIPS [facility]: Dose Right [facility]: CareDose [facility]: Dose Right [facility]: Teradose 4D [facility]: [employer] LIMITATIONS: None. FINDINGS: Contrast bolus is significantly suboptimal. No large or central pulmonary embolus. Evaluation of the remaining pulmonary arterial tree is nearly nondiagnostic. Negative for thoracic aortic aneurysm or dissection. Small hiatal hernia with subjective wall thickening of the distal esophagus. No mediastinal or hilar adenopathy. Pacing device noted. Heart size normal. Limited evaluation of upper abdomen unremarkable. Osseous structures are grossly intact. No pneumothorax. Dependent atelectasis in each lung base. Lungs are otherwise clear. Visualized airways are patent. Mild motion artifact. IMPRESSION: Suboptimal contrast bolus with mild motion artifact, however no large or central pulmonary embolus. Dependent atelectasis in each lung base. Small hiatal hernia. Subjective wall thickening of the distal esophagus TECHNICAL DOCUMENTATION: Quality ID # 436: Final reports with documentation of one or more dose reduction techniques (e.g., Automated exposure control, adjustment of the mA and/or kV according to patient size, use of iterative reconstruction technique) copyright 2011 [employer]- All Rights Reserved
[2020-05-01] MEDS ORDERED: ACETAMINOPHEN 325 MG TABLET PO PRN (22:19)
[2020-05-01] MEDS ORDERED: LEVETIRACETAM 1000 MG/NACL-ISO 1,000 MG/100 ML RTUPB IV SCH (22:30)
[2020-05-01] MEDS ORDERED: DIAZEPAM INJ 10 MG/2 ML DISP.SYRIN IV PRN (22:42)
[2020-05-01] MEDS ORDERED: LAMOTRIGINE 100 MG TABLET PO SCH (23:00)
[2020-05-01] MEDS: PANTOPRAZOLE SODIUM 40 MG VIAL IV SCH (23:18)
[2020-05-01] MEDS: RINGERS SOLUTION,LACTATED 1,000 ML IV PRN (23:19)
--- NOTE | 2020-05-02 00:13 | CRITICAL CARE ADMISSION REPORT ---
HPI Date:: 05/01/20 Time:: 23:41 Reason for ICU Reason:: seizures, postictal sate Admission Date/Time & PCP: Admission Date/Time: 05/01/20 22:57 Primary Care Provider: ROBERT HOUSE MD Patient in ER requested ICU admission attending Dr. Ann. HPI: 39 year old male patient who presented to [facility] this morning with complaints of seizure activity since 7 AM. The patient has a known history of seizures and per the mother the patient is compliant ith his meds which are keppra, lamictal, and onfi. The patient is special needs and his mother is primary caregiver. The patient has had multiple visits [facility] ED for seizure like activity and last hospitalization he was referred to a neurologist at [facility], Dr. Trujillo. It is unclear if this follow up was kept as mother states the patient sees a neurologist here in [place]. The patient is mentally delayed. Per the ER staff the patient was given tivan and keppra for seizure activity and was witnessed having a grand mal seizure. Critical care was consulted for admission and medical management of this patient. A complete review of systems was unable to obtain due to patient being sedated. 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 Is this a current diagnosis for this admission?: Yes (4) Status epilepticus Is this a current diagnosis for this admission?: Yes Plan: monitor airway intubate if ham for protection aspiration precautions Past Medical History Cardiac Medical History: Reports: None Pulmonary Medical History: Reports: None Denies: Tuberculosis EENT Medical History: Reports: None Neurological Medical History: Reports: Seizures Endocrine Medical History: Reports: None Renal/ Medical History: Reports: None Malignancy Medical History: Reports: None GI Medical History: Reports: Gastroesophageal Reflux Disease Musculoskeltal Medical History: Reports: None Skin Medical History: Reports: None Psychiatric Medical History: Reports: Other - mentally delayed Denies: Alcohol Dependency, Depression, Tobacco Dependency Traumatic Medical History: Reports: None Hematology: Reports: None Past Surgical History Past Surgical History: Reports: Other - Vagal nerve stimulator in 2014 Social/Family History - Social History Lives with: Family Smoking Status: Never Smoker Frequency of Alcohol Use: None Hx Recreational Drug Use: No Drugs: None Hx Prescription Drug Abuse: No - Family History Family History: Reviewed & Not Pertinent - Medication/Allergies Home Medications: Levetiracetam [Keppra 500 mg Tablet] 1,500 mg PO Q12 #60 tablet 05/14/17 Clobazam [Onfi] 20 mg PO BID #20 tablet 05/29/18 Lamotrigine [Lamictal 100 mg Tablet] 300 mg PO BID #60 tablet 05/29/18 Allergies/Adverse Reactions: No Known Allergies Allergy (Verified 05/01/20 08:29) Review of Systems ROS unobtainable: Due to mental status - pt is postictal Physical Exam Vital Signs: Temp Pulse Resp BP Pulse Ox 98.4 F 92 30 H 166/104 H 98 05/01/20 09:51 05/01/20 09:51 05/01/20 21:07 05/01/20 21:07 05/01/20 21:07 Intake & Output 04/30/20 05/01/20 05/02/20 06:59 06:59 06:59 Intake Total 1200 Balance 1200 Weight 108.862 kg Weight/Height Weight 108.862 kg Height 5 ft 7 in General appearance: PRESENT: mild distress, well-developed, well-nourished Head exam: PRESENT: atraumatic, normocephalic Eye exam: PRESENT: other - pupils sluggish post sedation Ear exam: PRESENT: normal external ear exam Mouth exam: PRESENT: moist - drooling Neck exam: PRESENT: full ROM. ABSENT: JVD, lymphadenopathy, thyromegaly, tracheal deviation Respiratory exam: PRESENT: clear to auscultation fabricio, decreased breath sounds, unlabored Cardiovascular exam: PRESENT: RRR, +S1, +S2. ABSENT: clicks, gallop, rubs, systolic murmur Pulses: PRESENT: normal radial pulses, +2 pedal pulses bilateral Vascular exam: PRESENT: normal capillary refill GI/Abdominal exam: PRESENT: normal bowel sounds, soft. ABSENT: tenderness Rectal exam: PRESENT: deferred Extremities exam: ABSENT: pedal edema Musculoskeletal exam: PRESENT: full ROM Neurological exam: PRESENT: altered, reflexes normal Focused psych exam: PRESENT: other - mentally delayed Laboratory/Radiographs Laboratory Results: 05/01/20 13:59 05/01/20 13:59 05/01/20 05/01/20 05/01/20 13:59 13:59 13:59 WBC 7.6 RBC 6.45 H Hgb 17.3 H Hct 52.2 H MCV 81 MCH 26.8 L MCHC 33.2 RDW 17.4 H Plt Count 271 Seg Neutrophils % 70.0 VBG pH VBG pCO2 VBG HCO3 VBG Base Excess Sodium 139.0 Potassium 4.2 Chloride 102 Carbon Dioxide 26 Anion Gap 11 BUN 5 L Creatinine 0.89 Est GFR ( Amer) > 60 Glucose 103 Lactic Acid Calcium 9.8 Total Bilirubin 0.6 AST 24 Alkaline Phosphatase 119 Total Protein 8.5 H Albumin 5.0 TSH 2.44 Urine Color Urine Appearance Urine pH Ur Specific Chambers Urine Protein Urine Glucose (UA) Urine Ketones Urine Blood Urine Nitrite Ur Leukocyte Esterase Urine WBC (Auto) Urine RBC (Auto) 05/01/20 05/01/20 05/01/20 16:45 16:45 16:45 WBC RBC Hgb Hct MCV MCH MCHC RDW Plt Count Seg Neutrophils % VBG pH 7.37 VBG pCO2 46.1 VBG HCO3 26.0 VBG Base Excess 0.1 Sodium Potassium Chloride Carbon Dioxide Anion Gap BUN Creatinine Est GFR ( Amer) Glucose Lactic Acid 1.4 Calcium Total Bilirubin AST Alkaline Phosphatase Total Protein Albumin TSH Urine Color YELLOW Urine Appearance CLEAR Urine pH 7.0 Ur Specific Chambers 1.010 Urine Protein NEGATIVE Urine Glucose (UA) NEGATIVE Urine Ketones NEGATIVE Urine Blood SMALL H Urine Nitrite NEGATIVE Ur Leukocyte Esterase NEGATIVE Urine WBC (Auto) 0 Urine RBC (Auto) 2 Impressions: Head CT 05/01/20 13:30 IMPRESSION: NO ACUTE INTRACRANIAL IMAGING FINDINGS. EVIDENCE OF ACUTE STROKE: NO. Chest X-Ray 05/01/20 19:11 IMPRESSION: NO ACUTE RADIOGRAPHIC FINDING IN THE CHEST. Chest/Abdomen CTA 05/01/20 19:42 IMPRESSION: Suboptimal contrast bolus with mild motion artifact, however no large or central pulmonary embolus. Dependent atelectasis in each lung base. Small hiatal hernia. Subjective wall thickening of the distal esophagus TECHNICAL DOCUMENTATION: Quality ID # 436: Final reports with documentation of one or more dose reduction techniques (e.g., Automated exposure control, adjustment of the mA and/or kV according to patient size, use of iterative reconstruction technique) copyright 2011 [employer]- All Rights Reserved All labs, radiographs, diagnostic studies and EKGs were personally reviewed: Yes In addition, reports of radiographic and diagnostic studies were read: Yes Critical Time Critical Time (minutes): 55 -: The care of a critically ill patient is dynamic. This note represents a static moment in the admission process. Orders and treatments may be given simultaneously and urgently, and time is not packaging sales representative of the treatment process. This patient requires Critical Care secondary to life threatening organ or limb dysfunction. Without Critical Care services, the patient is at risk for increased mortality and morbidity.
[2020-05-02] MEDS ORDERED: LEVETIRACETAM 1500 MG/NACL-ISO 1,500 MG/100 ML RTUPB IV SCH (00:45)
[2020-05-02] MEDS ORDERED: LEVETIRACETAM 500 MG/NACL-ISO 500 MG/100 ML RTUPB IV ONE (03:38)
[2020-05-02 05:36] LABS: ABSOLUTE BASOPHILS # (AUTO) 0.1 10^3/uL (0.0-0.2); ABSOLUTE LYMPHOCYTES (AUTO) 2.5 10^3/uL (0.5-4.7); ABSOLUTE NEUT (AUTO) 6.4 10^3/uL (1.7-8.2); BASOPHILS % (AUTO) 0.5 % (0-2); EOSINOPHILS % (AUTO) 0.5 % (0-6); HEMATOCRIT 48.6 % (37.9-51.0); HEMOGLOBIN 16.1 g/dL (13.5-17.0); LYMPHOCYTES % (AUTO) 24.9 % (13-45); MEAN CORPUSCULAR HEMOGLOBIN 26.9 pg (27.0-33.4); MEAN CORPUSCULAR HGB CONC 33.2 g/dL (32.0-36.0); MEAN CORPUSCULAR VOLUME 81 fl (80-97); MONOCYTES % (AUTO) 9.9 % (3-13); PLATELET COUNT 247 10^3/uL (150-450); RED BLOOD COUNT 6.01 10^6/uL (4.35-5.55); RED CELL DISTRIBUTION WIDTH 17.4 % (11.5-14.0); SEGMENTED NEUTROPHILS % (AUTO) 64.2 % (42-78); TOTAL CELLS COUNTED % (AUTO) 100 %
[2020-05-02 05:41] LABS: INTERNATIONAL RATION (INR) 0.99; PROTHROMBIN TIME 13.3 SEC (11.4-15.4)
[2020-05-02 05:57] LABS: ALBUMIN 4.2 g/dL (3.5-5.0); ALKALINE PHOSPHATASE 101 U/L (38-126); ANION GAP 12 (5-19); ASPARTATE AMINO TRANSFERASE 15 U/L (17-59); BILIRUBIN,DIRECT 0.3 mg/dL (0.0-0.4); BILIRUBIN,TOTAL 0.8 mg/dL (0.2-1.3); BLOOD UREA NITROGEN 5 mg/dL (7-20); CALCIUM 9.3 mg/dL (8.4-10.2); CARBON DIOXIDE 23 mmol/L (22-30); CHLORIDE 103 mmol/L (98-107); GLUCOSE 94 mg/dL (75-110); POTASSIUM 4.5 mmol/L (3.6-5.0); TOTAL PROTEIN 7.4 g/dL (6.3-8.2)
[2020-05-02 06:10] LABS: FREE T4 (FREE THYROXINE) 0.99 ng/dL (0.78-2.19)
[2020-05-02 06:23] LABS: THYROID STIMULATING HORMONE 1.8 uIU/mL (0.47-4.68)
--- NOTE | 2020-05-02 08:44 | RADIOLOGY REPORT (SQ) ---
EXAM DESCRIPTION: CHEST SINGLE VIEW IMAGES COMPLETED DATE/TIME: 05/02/2020 6:27 am REASON FOR STUDY: r/o aspiration COMPARISON: 05/01/2020 FINDINGS: One-view chest AP portable semi-upright. Low lung volumes with lordotic positioning. Allowing for this, doubt change. No pneumothorax or developing infiltrate. TECHNICAL DOCUMENTATION: JOB ID: [id number] Reading location - IP/workstation name: [email or web address]
[2020-05-02] MEDS ORDERED: LAMOTRIGINE 100 MG TABLET PO SCH (10:00)
[2020-05-02] MEDS ORDERED: LEVETIRACETAM 1000 MG/NACL-ISO 1,000 MG/100 ML RTUPB IV SCH (10:00)
[2020-05-02] MEDS: PANTOPRAZOLE SODIUM 40 MG VIAL IV SCH (10:14)
[2020-05-02] MEDS: LEVETIRACETAM 1500 MG/NACL-ISO 1,500 MG/100 ML RTUPB IV SCH ×2 (10:27→22:05)
--- NOTE | 2020-05-02 12:16 | PDOC CRITICAL CARE PROG REPORT ---
General Date:: 05/02/20 Hospital Day:: 2 Resuscitation Status: Full Code Events in the past 12 to 24 Hours:: No seizures. Awake and eating. Review of systems relevant to events:: Neurological. Reason for ICU Addmission:: seizures, postictal sate. More stable, awake. Can go to IMC with seizure precautions. - Medications: Medications reviewed and adjusted accordingly: Yes Vasopressors:: None Sedation:: None Physical Exam Vital Signs: Temp Pulse Resp BP Pulse Ox 98.4 F 84 21 H 150/101 H 97 05/02/20 08:00 05/02/20 08:00 05/02/20 10:00 05/02/20 09:48 05/02/20 10:00 Intake & Output 05/01/20 05/02/20 05/03/20 06:59 06:59 06:59 Intake Total 1400 Output Total 800 550 Balance 600 -550 Weight 103.6 kg Weight/Height Weight 103.6 kg Height 5 ft 7 in General appearance: PRESENT: no acute distress, cooperative, well-nourished Head exam: PRESENT: atraumatic, normocephalic Eye exam: PRESENT: conjunctiva pink, EOMI, PERRLA. ABSENT: scleral icterus Ear exam: PRESENT: normal external ear exam Mouth exam: PRESENT: moist, tongue midline Respiratory exam: PRESENT: clear to auscultation fabricio. ABSENT: rales, rhonchi, wheezes Cardiovascular exam: PRESENT: RRR. ABSENT: diastolic murmur, rubs, systolic murmur GI/Abdominal exam: PRESENT: normal bowel sounds, soft. ABSENT: distended, guarding, mass, organolmegaly, rebound, tenderness Rectal exam: PRESENT: deferred Extremities exam: PRESENT: full ROM. ABSENT: calf tenderness, clubbing, pedal edema Musculoskeletal exam: PRESENT: normal inspection Neurological exam: PRESENT: alert, awake, oriented to person, oriented to place, CN II-XII grossly intact, other - He does have a developemental delay but is high functioning Psychiatric exam: PRESENT: appropriate affect, normal mood. ABSENT: homicidal ideation, suicidal ideation Skin exam: PRESENT: dry, intact, warm. ABSENT: cyanosis, rash Laboratory/Radiographs Laboratory Results: 05/02/20 05:00 05/02/20 05:00 05/01/20 05/01/20 05/01/20 13:59 13:59 13:59 WBC 7.6 RBC 6.45 H Hgb 17.3 H Hct 52.2 H MCV 81 MCH 26.8 L MCHC 33.2 RDW 17.4 H Plt Count 271 Seg Neutrophils % 70.0 VBG pH VBG pCO2 VBG HCO3 VBG Base Excess Sodium 139.0 Potassium 4.2 Chloride 102 Carbon Dioxide 26 Anion Gap 11 BUN 5 L Creatinine 0.89 Est GFR ( Amer) > 60 Glucose 103 Lactic Acid Calcium 9.8 Magnesium Total Bilirubin 0.6 AST 24 Alkaline Phosphatase 119 Total Protein 8.5 H Albumin 5.0 TSH 2.44 Free T4 Urine Color Urine Appearance Urine pH Ur Specific [place] Urine Protein Urine Glucose (UA) Urine Ketones Urine Blood Urine Nitrite Ur Leukocyte Esterase Urine WBC (Auto) Urine RBC (Auto) 05/01/20 05/01/20 05/01/20 16:45 16:45 16:45 WBC RBC Hgb Hct MCV MCH MCHC RDW Plt Count Seg Neutrophils % VBG pH 7.37 VBG pCO2 46.1 VBG HCO3 26.0 VBG Base Excess 0.1 Sodium Potassium Chloride Carbon Dioxide Anion Gap BUN Creatinine Est GFR ( Amer) Glucose Lactic Acid 1.4 Calcium Magnesium Total Bilirubin AST Alkaline Phosphatase Total Protein Albumin TSH Free T4 Urine Color YELLOW Urine Appearance CLEAR Urine pH 7.0 Ur Specific [place] 1.010 Urine Protein NEGATIVE Urine Glucose (UA) NEGATIVE Urine Ketones NEGATIVE Urine Blood SMALL H Urine Nitrite NEGATIVE Ur Leukocyte Esterase NEGATIVE Urine WBC (Auto) 0 Urine RBC (Auto) 2 05/02/20 05/02/20 05/02/20 05:00 05:00 05:00 WBC 10.0 RBC 6.01 H Hgb 16.1 Hct 48.6 MCV 81 MCH 26.9 L MCHC 33.2 RDW 17.4 H Plt Count 247 Seg Neutrophils % 64.2 VBG pH VBG pCO2 VBG HCO3 VBG Base Excess Sodium 138.4 Potassium 4.5 Chloride 103 Carbon Dioxide 23 Anion Gap 12 BUN 5 L Creatinine 0.82 Est GFR ( Amer) > 60 Glucose 94 Lactic Acid Calcium 9.3 Magnesium 2.4 H Total Bilirubin 0.8 AST 15 L Alkaline Phosphatase 101 Total Protein 7.4 Albumin 4.2 TSH 1.80 Free T4 0.99 Urine Color Urine Appearance Urine pH Ur Specific [place] Urine Protein Urine Glucose (UA) Urine Ketones Urine Blood Urine Nitrite Ur Leukocyte Esterase Urine WBC (Auto) Urine RBC (Auto) Impressions: Head CT 05/01/20 13:30 IMPRESSION: NO ACUTE INTRACRANIAL IMAGING FINDINGS. EVIDENCE OF ACUTE STROKE: NO. Chest/Abdomen CTA 05/01/20 19:42 IMPRESSION: Suboptimal contrast bolus with mild motion artifact, however no large or central pulmonary embolus. Dependent atelectasis in each lung base. Small hiatal hernia. Subjective wall thickening of the distal esophagus TECHNICAL DOCUMENTATION: Quality ID # 436: Final reports with documentation of one or more dose reduction techniques (e.g., Automated exposure control, adjustment of the mA and/or kV according to patient size, use of iterative reconstruction technique) copyright 2011 [employer]- All Rights Reserved EKG: NSR All labs, radiographs, diagnostic studies and EKGs were personally reviewed: Yes In addition, reports of radiographic and diagnostic studies were read: Yes Assessment and Plan - Diagnosis (1) Seizure Is this a current diagnosis for this admission?: Yes Plan: His seizureis difficult to control. He has a magnet activated seizure device implanted. His mother said she would bring it in. Continue keppra, change to PO at discharge. [facility] [place] status for seizure risk. (2) Developmental delay, moderate Is this a current diagnosis for this admission?: Yes Plan: This makes his care somewhat difficult, but he is high functioning. Plan Summary: Discharge in a day or so. Critical Time Critical Time (minutes): 30 Level of Care: IMCU Anticipated discharge: Home Anticipated DC Timeframe: within 24 hours -: 1. The care of a critical patient is a dynamic process. This note is a leasing representative synopsis but static in nature. The timeframe for treatments given in order is not necessarily the actual time these treatments may have been done. 2. This patient requires critical care secondary to ongoing requirements for therapy not offered or safe outside the critical care environment. Transfer to a lower level of care will result in altered life or limb morbidity and mortality. 3. Multidisciplinary rounds completed. 4. ABCDE bundle addressed.
--- NOTE | 2020-05-02 14:03 | EKG REPORT ---
SEVERITY:- ABNORMAL ECG - SINUS TACHYCARDIA LEFT ATRIAL ABNORMALITY : Confirmed by: Lori Agudelo 02-May-2020 14:03:19
--- NOTE | 2020-05-02 14:03 | EKG REPORT ---
SEVERITY:- BORDERLINE ECG - SINUS TACHYCARDIA PROBABLE LEFT ATRIAL ABNORMALITY BORDERLINE RIGHT AXIS DEVIATION : Confirmed by: Lori Agudelo 02-May-2020 14:03:13
--- NOTE | 2020-05-02 14:04 | EKG REPORT ---
SEVERITY:- BORDERLINE ECG - SINUS RHYTHM PROBABLE LEFT ATRIAL ABNORMALITY : Confirmed by: Lori Agudelo 02-May-2020 14:03:06
[2020-05-02] MEDS: LAMOTRIGINE 100 MG TABLET PO SCH (17:38)
[2020-05-02] MEDS: RINGERS SOLUTION,LACTATED 1,000 ML IV PRN (22:06)
[2020-05-03] MEDS: RINGERS SOLUTION,LACTATED 1,000 ML IV PRN ×2 (06:41→16:01)
[2020-05-03] MEDS: LEVETIRACETAM 1500 MG/NACL-ISO 1,500 MG/100 ML RTUPB IV SCH ×2 (10:13→21:33)
[2020-05-03] MEDS: LAMOTRIGINE 100 MG TABLET PO SCH ×2 (10:13→17:59)
--- NOTE | 2020-05-03 19:59 | PDOC PROGRESS REPORT ---
Subjective Progress Note for:: 05/03/20 Subjective:: No seizure activity. No chest pain or difficulty with breathing. No fever or chills. No nausea, vomiting, or abdominal pain. Reason For Visit: SEIZURES Physical Exam Vital Signs: Temp Pulse Resp BP Pulse Ox 98.3 F 88 22 H 109/67 95 05/03/20 15:48 05/03/20 15:48 05/03/20 15:48 05/03/20 15:48 05/03/20 15:48 Intake & Output 05/02/20 05/03/20 05/04/20 06:59 06:59 06:59 Intake Total 1400 3310 3020 Output Total 800 1950 Balance 600 1360 3020 Weight 103.6 kg General appearance: PRESENT: no acute distress, obese Head exam: PRESENT: atraumatic, normocephalic Eye exam: PRESENT: conjunctiva pink, EOMI, PERRLA. ABSENT: scleral icterus Ear exam: PRESENT: normal external ear exam Mouth exam: PRESENT: moist, tongue midline Neck exam: PRESENT: full ROM. ABSENT: carotid bruit, JVD, lymphadenopathy, thyromegaly Respiratory exam: PRESENT: clear to auscultation fabricio Cardiovascular exam: PRESENT: RRR. ABSENT: diastolic murmur, rubs, systolic murmur Vascular exam: ABSENT: pallor GI/Abdominal exam: PRESENT: normal bowel sounds, soft. ABSENT: distended, guarding, mass, organolmegaly, rebound, tenderness Extremities exam: ABSENT: pedal edema Neurological exam: PRESENT: alert, awake, oriented to person, oriented to place, oriented to time, oriented to situation, CN II-XII grossly intact. ABSENT: motor sensory deficit Psychiatric exam: PRESENT: appropriate affect, normal mood. ABSENT: homicidal ideation, suicidal ideation Skin exam: PRESENT: dry, intact, warm. ABSENT: cyanosis, rash Results Laboratory Results: 05/02/20 05:00 05/02/20 05:00 Impressions: Head CT 05/01/20 13:30 IMPRESSION: NO ACUTE INTRACRANIAL IMAGING FINDINGS. EVIDENCE OF ACUTE STROKE: NO. Chest/Abdomen CTA 05/01/20 19:42 IMPRESSION: Suboptimal contrast bolus with mild motion artifact, however no large or central pulmonary embolus. Dependent atelectasis in each lung base. Small hiatal hernia. Subjective wall thickening of the distal esophagus TECHNICAL DOCUMENTATION: Quality ID # 436: Final reports with documentation of one or more dose reduction techniques (e.g., Automated exposure control, adjustment of the mA and/or kV according to patient size, use of iterative reconstruction technique) copyright 2011 [employer]- All Rights Reserved Assessment & Plan - Diagnosis (1) Recurrent seizures Is this a current diagnosis for this admission?: Yes Plan: Continue current medication management. (2) Developmental delay, moderate Is this a current diagnosis for this admission?: Yes Plan: Continue current medication management. - Time Time Spent with patient: 25-34 minutes Level of Care: IMCU Medications reviewed and adjusted accordingly: Yes Anticipated discharge: Home with Homehealth Anticipated DC Timeframe: within 24 hours - Inpatient Certification Based on my medical assessment, after consideration of the patient's jonny rbidities, presenting symptoms, or acuity I expect that the services needed warrant INPATIENT care.: Yes I certify that my determination is in accordance with my understanding of Medicare's requirements for reasonable and necessary INPATIENT services [42 CFR 412.3e].: Yes Medical Necessity: Significant Comorbidiites Make Outpatient Treatment Too Risky, Need Close Monitoring Due to Risk of Patient Decompensation, Need For IV Fluids, Need For Continuous Telemetry Monitoring, Risk of Complication if Not Cared For in Hospital, Risk of Diagnosis Which Will Require Inpatient Eval/Care/Monitoring Post Hospital Care: D/C Bartacker Documentation - Plan Summary Plan Summary: Continue current medication management. D/C Ringer Lactate infusion. Start on N/S IV fluid at 100 ml/hr.
[2020-05-03] MEDS ORDERED: NORMAL SALINE 1000 ML 1,000 ML IV PRN (20:00)
[2020-05-04 08:27] VITALS: BP 135/77
[2020-05-04] MEDS: LEVETIRACETAM 1500 MG/NACL-ISO 1,500 MG/100 ML RTUPB IV SCH (09:21)
[2020-05-04] MEDS: LAMOTRIGINE 100 MG TABLET PO SCH (09:21)
--- NOTE | 2020-05-04 10:34 | PDOC DISCHARGE SUMMARY ---
Impression - Admit/DC Date/PCP Admission Date/Primary Care Provider: 05/01/20 22:57 ROBERT HOUSE MD Discharge Date: 05/04/20 - Additional Information Resuscitation Status: Full Code Discharge Diet: Regular Discharge Activity: Activity As Tolerated Referrals: ROBERT HOUSE MD [Primary Care Provider] - 05/14/20 10:15 am (f/u in offce 1wk f/u neurology today) Home Medications: Levetiracetam [Keppra 500 mg Tablet] 1,500 mg PO Q12 #60 tablet 05/14/17 Clobazam [Onfi] 20 mg PO BID #20 tablet 05/29/18 Lamotrigine [Lamictal 100 mg Tablet] 300 mg PO BID #60 tablet 05/29/18 History of Present Illiness History of Present Illness: MIGUEL ANGEL ACLARAZ is a 39 year old male Patient was admitting in the ICU for uncontrolled seizures with the known seizures patient is currently follow the neurology Hospital Course Hospital Course: This is a 39-year-old patients with a known history of the seizures currently follow with the neurology as outpatient and have appointment to see the [facility] for ongoing uncontrolled seizures activity came to the emergency department with the continues seizures patient admitting in the ICU start on IV Keppra and other medications Patient's transferred to the medical floor have a seizures free for the last 24 hours back to the baseline Since chest x-ray is all clear Other blood work is all stable Discussed with the mother Patient's current condition patient have appointment to see the neurology today at 12:00 follow-up with him locally here to readjust the seizures medications Patient is already have appointment to see the [facility] she continues to follow that to\ Physical Exam Vital Signs: Temp Pulse Resp BP Pulse Ox 98.2 F 65 16 135/77 H 98 05/04/20 08:58 05/04/20 08:47 05/04/20 08:47 05/04/20 08:47 05/04/20 08:47 Intake & Output 05/03/20 05/04/20 05/05/20 06:59 06:59 06:59 Intake Total 3310 4120 Output Total 1950 Balance 1360 4120 Weight 102.3 kg General appearance: PRESENT: no acute distress, well-developed, well-nourished Head exam: PRESENT: atraumatic, normocephalic Eye exam: PRESENT: conjunctiva pink, EOMI, PERRLA. ABSENT: scleral icterus Ear exam: PRESENT: normal external ear exam Mouth exam: PRESENT: moist, tongue midline Neck exam: ABSENT: carotid bruit, JVD, lymphadenopathy, thyromegaly Respiratory exam: PRESENT: clear to auscultation fabricio. ABSENT: rales, rhonchi, wheezes Cardiovascular exam: PRESENT: RRR. ABSENT: diastolic murmur, rubs, systolic murmur Pulses: PRESENT: normal dorsalis pedis pul Vascular exam: PRESENT: normal capillary refill GI/Abdominal exam: PRESENT: normal bowel sounds, soft. ABSENT: distended, guarding, mass, organolmegaly, rebound, tenderness Rectal exam: PRESENT: deferred Extremities exam: PRESENT: full ROM. ABSENT: calf tenderness, clubbing, pedal edema Neurological exam: PRESENT: alert, awake, oriented to person, oriented to place, oriented to time, oriented to situation, CN II-XII grossly intact. ABSENT: motor sensory deficit Psychiatric exam: PRESENT: appropriate affect, normal mood. ABSENT: homicidal ideation, suicidal ideation Skin exam: PRESENT: dry, intact, warm. ABSENT: cyanosis, rash Results Laboratory Results: WBC 10.0 10^3/uL (4.0-10.5) 05/02/20 05:00 RBC 6.01 10^6/uL (4.35-5.55) H 05/02/20 05:00 Hgb 16.1 g/dL (13.5-17.0) 05/02/20 05:00 Hct 48.6 % (37.9-51.0) 05/02/20 05:00 MCV 81 fl (80-97) 05/02/20 05:00 MCH 26.9 pg (27.0-33.4) L 05/02/20 05:00 MCHC 33.2 g/dL (32.0-36.0) 05/02/20 05:00 RDW 17.4 % (11.5-14.0) H 05/02/20 05:00 Plt Count 247 10^3/uL (150-450) 05/02/20 05:00 Lymph % (Auto) 24.9 % (13-45) 05/02/20 05:00 Falls % (Auto) 9.9 % (3-13) 05/02/20 05:00 Eos % (Auto) 0.5 % (0-6) 05/02/20 05:00 Baso % (Auto) 0.5 % (0-2) 05/02/20 05:00 Absolute Neuts (auto) 6.4 10^3/uL (1.7-8.2) 05/02/20 05:00 Absolute Lymphs (auto) 2.5 10^3/uL (0.5-4.7) 05/02/20 05:00 Absolute Monos (auto) 1.0 10^3/uL (0.1-1.4) 05/02/20 05:00 Absolute Eos (auto) 0.0 10^3/uL (0.0-0.6) 05/02/20 05:00 Absolute Basos (auto) 0.1 10^3/uL (0.0-0.2) 05/02/20 05:00 Seg Neutrophils % 64.2 % (42-78) 05/02/20 05:00 PT 13.3 SEC (11.4-15.4) 05/02/20 05:00 INR 0.99 05/02/20 05:00 VBG pH 7.37 (7.30-7.42) 05/01/20 16:45 VBG pCO2 46.1 mmHg (35-63) 05/01/20 16:45 VBG HCO3 26.0 mmol/L (20-32) 05/01/20 16:45 VBG Base Excess 0.1 mmol/L 05/01/20 16:45 Sodium 138.4 mmol/L (137-145) 05/02/20 05:00 Potassium 4.5 mmol/L (3.6-5.0) 05/02/20 05:00 Chloride 103 mmol/L (98-107) 05/02/20 05:00 Carbon Dioxide 23 mmol/L (22-30) 05/02/20 05:00 Anion Gap 12 (5-19) 05/02/20 05:00 BUN 5 mg/dL (7-20) L 05/02/20 05:00 Creatinine 0.82 mg/dL (0.52-1.25) 05/02/20 05:00 Est GFR ( Amer) > 60 (>60) 05/02/20 05:00 Est GFR (MDRD) Non-Af > 60 (>60) 05/02/20 05:00 Glucose 94 mg/dL (75-110) 05/02/20 05:00 Hemoglobin A1c % 4.4 % (4.7-6.0) L 05/02/20 05:00 Lactic Acid 1.4 mmol/L (0.7-2.1) 05/01/20 16:45 Calcium 9.3 mg/dL (8.4-10.2) 05/02/20 05:00 Magnesium 2.4 mg/dL (1.6-2.3) H 05/02/20 05:00 Total Bilirubin 0.8 mg/dL (0.2-1.3) 05/02/20 05:00 Direct Bilirubin 0.3 mg/dL (0.0-0.4) 05/02/20 05:00 Neonat Total Bilirubin Not Reportable 05/02/20 05:00 Neonat Direct Bilirubin Not Reportable 05/02/20 05:00 Neonat Indirect Bili Not Reportable 05/02/20 05:00 AST 15 U/L (17-59) L 05/02/20 05:00 ALT 19 U/L (<50) 05/02/20 05:00 Alkaline Phosphatase 101 U/L (38-126) 05/02/20 05:00 Total Protein 7.4 g/dL (6.3-8.2) 05/02/20 05:00 Albumin 4.2 g/dL (3.5-5.0) 05/02/20 05:00 TSH 1.80 uIU/mL (0.47-4.68) 05/02/20 05:00 Free T4 0.99 ng/dL (0.78-2.19) 05/02/20 05:00 Urine Color YELLOW 05/01/20 16:45 Urine Appearance CLEAR 05/01/20 16:45 Urine pH 7.0 (5.0-9.0) 05/01/20 16:45 Ur Specific [place] 1.010 05/01/20 16:45 Urine Protein NEGATIVE mg/dL (NEGATIVE) 05/01/20 16:45 Urine Glucose (UA) NEGATIVE mg/dL (NEGATIVE) 05/01/20 16:45 Urine Ketones NEGATIVE mg/dL (NEGATIVE) 05/01/20 16:45 Urine Blood SMALL (NEGATIVE) H 05/01/20 16:45 Urine Nitrite NEGATIVE (NEGATIVE) 05/01/20 16:45 Urine Bilirubin NEGATIVE (NEGATIVE) 05/01/20 16:45 Urine Urobilinogen NEGATIVE mg/dL (<2.0) 05/01/20 16:45 Ur Leukocyte Esterase NEGATIVE (NEGATIVE) 05/01/20 16:45 Urine WBC (Auto) 0 /HPF 05/01/20 16:45 Urine RBC (Auto) 2 /HPF 05/01/20 16:45 Urine Mucus (Auto) RARE /LPF 05/01/20 16:45 Urine Ascorbic Acid NEGATIVE (NEGATIVE) 05/01/20 16:45 Urine Opiates Screen NEGATIVE 05/01/20 16:45 Urine Methadone Screen NEGATIVE 05/01/20 16:45 Ur Barbiturates Screen NEGATIVE 05/01/20 16:45 Ur Phencyclidine Scrn NEGATIVE 05/01/20 16:45 Ur Amphetamines Screen NEGATIVE 05/01/20 16:45 U Benzodiazepines Scrn NEGATIVE 05/01/20 16:45 Urine Cocaine Screen NEGATIVE 05/01/20 16:45 U Marijuana (THC) Screen NEGATIVE 05/01/20 16:45 Serum Alcohol < 10 mg/dL (NONE DETECTED) 05/01/20 13:59 Impressions: Chest X-Ray 05/01/20 13:30 IMPRESSION: NO ACUTE RADIOGRAPHIC FINDING IN THE CHEST. Head CT 05/01/20 13:30 IMPRESSION: NO ACUTE INTRACRANIAL IMAGING FINDINGS. EVIDENCE OF ACUTE STROKE: NO. Chest X-Ray 05/01/20 19:11 IMPRESSION: NO ACUTE RADIOGRAPHIC FINDING IN THE CHEST. Chest/Abdomen CTA 05/01/20 19:42 IMPRESSION: Suboptimal contrast bolus with mild motion artifact, however no large or central pulmonary embolus. Dependent atelectasis in each lung base. Small hiatal hernia. Subjective wall thickening of the distal esophagus TECHNICAL DOCUMENTATION: Quality ID # 436: Final reports with documentation of one or more dose reduction techniques (e.g., Automated exposure control, adjustment of the mA and/or kV according to patient size, use of iterative reconstruction technique) copyright 2011 [employer]- All Rights Reserved Plan Time Spent: Greater than 30 Minutes - Follow-up with the neurology today Stroke Is this a Stroke Patient?: No Acute Heart Failure - Is this a Heart Failure Patient?: No
== END 2020-05-04 10:30 | disposition home or self-care (01) | DRG 101 ==
LOC: ER 07:43 → EH 22:57 → ICU 05-02 00:43 → 3W 05-02 17:48
PROVIDERS: ADMIT Family Medicine; ATTEND Family Medicine
DX: G40.803 Other epilepsy, intractable, with status epilepticus (principal); K21.9 Gastro-esophageal reflux disease without esophagitis; F71 Moderate intellectual disabilities; Z79.899 Other long term (current) drug therapy; S01.81XA Laceration without foreign body of other part of head, initial encounter; X58.XXXA Exposure to other specified factors, initial encounter; Y92.9 Unspecified place or not applicable
CPT/HCPCS: 36415; 70450; 71045; 71275; 80053; 80177; 80307; 81001; 82803; 83036; 83605; 83735; 84439; 84443; 85025; 85610; 87040; 93005; 93010; 96361; 96365; 96375; 99221; 99285; 99291; C9113; J1953; J2060; J3490; J7030; J7120

== ENCOUNTER 2020-05-28 18:35 | Emergency (ER) | payer MEDICAID ==
[2020-05-28 20:06] LABS: ABSOLUTE LYMPHOCYTES (AUTO) 0.8 10^3/uL (0.5-4.7); ABSOLUTE MONOCYTES (AUTO) 0.8 10^3/uL (0.1-1.4); ABSOLUTE NEUT (AUTO) 12.4 10^3/uL (1.7-8.2); BASOPHILS % (AUTO) 0.3 % (0-2); EOSINOPHILS % (AUTO) 0.1 % (0-6); HEMATOCRIT 51.5 % (37.9-51.0); LYMPHOCYTES % (AUTO) 5.6 % (13-45); MEAN CORPUSCULAR HEMOGLOBIN 26.6 pg (27.0-33.4); MEAN CORPUSCULAR VOLUME 81 fl (80-97); MONOCYTES % (AUTO) 5.5 % (3-13); PLATELET COUNT 250 10^3/uL (150-450); RED BLOOD COUNT 6.39 10^6/uL (4.35-5.55); RED CELL DISTRIBUTION WIDTH 17.2 % (11.5-14.0); SEGMENTED NEUTROPHILS % (AUTO) 88.5 % (42-78); TOTAL CELLS COUNTED % (AUTO) 100 %
[2020-05-28 20:13] LABS: ALBUMIN 4.8 g/dL (3.5-5.0); ALKALINE PHOSPHATASE 122 U/L (38-126); ANION GAP 16 (5-19); ASPARTATE AMINO TRANSFERASE 23 U/L (17-59); BILIRUBIN,DIRECT 0.4 mg/dL (0.0-0.4); BILIRUBIN,TOTAL 0.6 mg/dL (0.2-1.3); BLOOD UREA NITROGEN 8 mg/dL (7-20); CALCIUM 9.7 mg/dL (8.4-10.2); CARBON DIOXIDE 20 mmol/L (22-30); CHLORIDE 102 mmol/L (98-107); GLUCOSE 142 mg/dL (75-110); POTASSIUM 4.3 mmol/L (3.6-5.0); TOTAL PROTEIN 8.2 g/dL (6.3-8.2)
--- NOTE | 2020-05-28 21:01 | ER Document Report ---
ED General - General Chief Complaint: Seizure Stated Complaint: POSSIBLE SEIZURE Time Seen by Provider: 05/28/20 20:13 Primary Care Provider: HOLLY DAWN MD [NO LOCAL MD] - Follow up as needed ROBERT HOUSE MD [Primary Care Provider] - Follow up as needed Information source: Parent TRAVEL OUTSIDE OF THE [place] 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 Mother states that the patient was in the bathroom around 16:30-17:00 this evening when she heard a loud bang. She rushed into the bathroom to find the patient on his knees with his head and torso in the tub. Mother states he was actively seizing but denies tonic clonic movements. EMS was called and reports seeing "soap suds" in the bathtub with no water. Mother reports that patient is currently in his typical postictal state which is usual fatigue for about 3-4 hours. Patient attends a day facility to have constant care when his mother cannot be with him. Mother states the day facility called her today and reported an earlier seizure this morning at 10AM. Patient takes Keppra 1500mg BID, Lamictal 300mg BID and Onfi 20mg BID for his seizure disorder. Mother states last seizure was about one month ago and reports he has a few seizures a year. Per mother, patient has a vagal nerve stimulator and has been having it worked with over the past 1.5 months which has a caused a mild cough. - Related Data Allergies/Adverse Reactions: No Known Allergies Allergy (Verified 05/01/20 08:29) Home Medications: Keppra 1500mg BID. Lamictal 300mg BID. Onfi 20mg BID Past Medical History - General Information source: Parent - Social History Smoking Status: Never Smoker Chew tobacco use (# tins/day): No Frequency of alcohol use: None Drug Abuse: None Family History: Reviewed & Not Pertinent Patient has homicidal ideation: No Pulmonary Medical History: Denies: Hx Tuberculosis Neurological Medical History: Reports: Hx Seizures Renal/ Medical History: Denies: Hx Peritoneal Dialysis GI Medical History: Reports: Hx Gastroesophageal Reflux Disease Psychiatric Medical History: Denies: Hx Depression Past Surgical History: Reports: Hx Oral Surgery, Other - Vagal nerve stimulator in 2014 - Immunizations Hx Diphtheria, Pertussis, Tetanus Vaccination: No Review of Systems - Review of Systems Constitutional: See HPI EENT: No symptoms reported Cardiovascular: No symptoms reported Respiratory: See HPI Gastrointestinal: No symptoms reported Genitourinary: No symptoms reported Male Genitourinary: No symptoms reported Musculoskeletal: No symptoms reported Skin: No symptoms reported Hematologic/Lymphatic: No symptoms reported Neurological/Psychological: See HPI Physical Exam - Vital signs Vitals: Temp 99.1 F 05/28/20 18:35 - Notes Notes: PHYSICAL EXAMINATION: VITALS: Vitals reviewed and within normal limits. GENERAL: Well-appearing, well-nourished and in no acute distress. HEAD: 3cm x 3cm hematoma to the right parietal scalp. No laceration or abrasion noted to the area. EYES: Pupils equal round and reactive to light, extraocular movements intact, sclera anicteric, conjunctiva are normal. ENT: nares patent, oropharynx clear without exudates. Moist mucous membranes. 1cm laceration noted to the left tongue, no active bleeding. NECK: Normal range of motion, supple without lymphadenopathy. LUNGS: Breath sounds clear to auscultation bilaterally and equal. No wheezes rales or rhonchi. HEART: Tachycardic with regular rhythm without murmurs. ABDOMEN: Soft, nontender, normoactive bowel sounds. No guarding, no rebound. No masses appreciated. EXTREMITIES: Normal range of motion, no pitting or edema. No cyanosis. NEUROLOGICAL: No focal neurological deficits. Moves all extremities spontaneously and on command. PSYCH: Normal mood, normal affect. SKIN: Warm, Dry, normal turgor, no rashes or lesions noted. Course - Re-evaluation Re-evalutation: Patient is a 39 y/o male with a hx of a seizure disorder presents for recurrent seizures. He had two seizures today, one while at his day facility and one this evening at home, where he was found face down in the tub. Patient has been compliant with his seizure medication. On exam, patient has a hematoma to his right scalp with no laceration or abrasion. No other injuries noted. Head CT and CT C-spine negative with no acute fractures or hemorrhage. WBC elevated at 14.0 which is consistent post-seizure. Mg and all other electrolytes normal. All other labwork unremarkable. Lamictal and Keppra levels ordered but won't results for a couple of days as they are send outs. Discussed results with m other and patient. As labwork is not concerning for infection or other acute process, I feel the patient is safe to be discharged home with prompt follow up with his neurologist, Dr. Dawn. Return precautions given. Patient's regular dose of lamictal and keppra given as he has not had his evening dose. 05/29/20 01:59 Notified by PCT that patient is hypertensive with BP of 174/119. Instructions given to mother to have patient's blood pressure elevated by his primary care provider. Mother is in agreement. - Vital Signs Vital signs: Temp Pulse Resp BP Pulse Ox 98.8 F 20 166/110 H 97 05/29/20 02:00 05/29/20 02:00 05/29/20 02:00 05/29/20 02:00 - Laboratory Result Diagrams: 05/28/20 19:06 05/28/20 19:06 Laboratory results interpreted by me: 05/28/20 05/28/20 05/28/20 19:06 19:06 19:06 WBC 14.0 H RBC 6.39 H Hct 51.5 H MCH 26.6 L RDW 17.2 H Lymph % (Auto) 5.6 L Absolute Neuts (auto) 12.4 H Seg Neutrophils % 88.5 H Carbon Dioxide 20 L Glucose 142 H Magnesium 2.5 H Urine Protein Urine Ketones Urine Blood 05/28/20 23:40 WBC RBC Hct MCH RDW Lymph % (Auto) Absolute Neuts (auto) Seg Neutrophils % Carbon Dioxide Glucose Magnesium Urine Protein 30 H Urine Ketones TRACE H Urine Blood SMALL H - EKG Interpretation by Me Additional EKG results interpreted by me: Sinus tachycardia with a rate of 121. QTc 443. Normal axis. No T wave inversions or ST segment changes in consecutive leads. Discharge - Discharge Clinical Impression: Recurrent seizures Head injury Qualifiers: Encounter type: initial encounter Qualified Code(s): S09.90XA - Unspecified injury of head, initial encounter Condition: Stable Disposition: HOME, SELF-CARE Additional Instructions: Seizure, Known Epileptic You have had a seizure. Seizures may "break through" in an epileptic due to stress of infection or injury, a change in blood chemistry, or drug and alcohol use. Another common cause is failure to take medication as prescribed. Your doctor has evaluated your situation for the likely cause of this seizure. It is important that you follow his advice concerning any medication changes and follow-up care. Further testing of anti-seizure medication levels in your blood may be necessary. 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 This seizure must be reported to the substitute bus driver's license bureau. Call the doctor or return if seizures recur, or if new or unusual symptoms arise -- such as severe headache, confusion, excessive sleepiness, local weakness or numbness, neck stiffness, or fever. Head Injury You have likely sustained a concussion. If you had a CT scan done, it did not show any evidence of serious injury or bleeding. Symptoms to expect from a concussion include nausea, mild to moderate headache, difficulty concentrating or sleeping, and mild lightheadedness. These symptoms should improve over the next few days to weeks. Return to the emergency department or follow-up with your primary care doctor if your symptoms are not improving over this time. Signs of a more serious head injury include vomiting, severe headache, excessive sleepiness or confusion, and weakness or numbness in your face, arms or legs. Return immediately to the Emergency Department if you experience any of these more concerning symptoms. Rest, avoid strenuous physical or mental activity, and avoid activities that could potentially result in another head injury until all your symptoms from this head injury are completely resolved for at least 2-3 weeks. If you participate in sports, get cleared by your doctor or assistive technology trainer before returning to play. You may take ibuprofen or acetaminophen over the counter according to label instructions for mild headache or scalp soreness. Forms: Elevated Blood Pressure Referrals: ROBERT HOUSE MD [Primary Care Provider] - Follow up as needed HOLLY DAWN MD [NO LOCAL MD] - Follow up as needed
[2020-05-28 21:09] LABS: ALCOHOL < 10 mg/dL (NONE DETECTED)
--- NOTE | 2020-05-28 21:50 | RADIOLOGY REPORT (SQ) ---
EXAM DESCRIPTION: CT HEAD WITHOUT IV CONTRAST, CT CERVICAL SPINE WITHOUT IV CONTRAST COMPLETED DATE/TME: 05/28/2020 20:40 CLINICAL HISTORY: 39 years, Male, head and neck injury s/p seizure COMPARISON: May 01, [address] No comparison cervical spine CT. TECHNIQUE: Noncontrast axial, coronal, and sagittal images of the head and cervical spine were obtained. Images stored on PACS. All CT scanners at this facility use dose modulation, iterative reconstruction, and/or weight based dosing when appropriate to reduce radiation dose to as low as reasonably achievable (ALARA). [facility]: Dose Right [facility]: CareDose [facility]: Dose Right [facility]: Teradose 4D [facility]: [employer] LIMITATIONS: None. FINDINGS: CT head: There is no acute intracranial hemorrhage, abnormal mass effect, or major vascular territorial infarction. The ventricular system and extra axial spaces are within normal limits. The calvarium is intact. The visualized portions of the paranasal sinuses and mastoid air cells are clear. CT cervical spine: There is no evidence of fracture or subluxation. No significant degenerative changes are identified. Left vagal nerve stimulator apparatus is partially visualized. There is no apical pneumothorax IMPRESSION: No acute abnormality as above. TECHNICAL DOCUMENTATION: Quality ID # 436: Final reports with documentation of one or more dose reduction techniques (e.g., Automated exposure control, adjustment of the mA and/or kV according to patient size, use of iterative reconstruction technique) copyright 2011 [employer]- All Rights Reserved
--- NOTE | 2020-05-28 21:50 | RADIOLOGY REPORT (SQ) ---
EXAM DESCRIPTION: CT HEAD WITHOUT IV CONTRAST, CT CERVICAL SPINE WITHOUT IV CONTRAST COMPLETED DATE/TME: 05/28/2020 20:40 CLINICAL HISTORY: 39 years, Male, head and neck injury s/p seizure COMPARISON: May 01, [address] No comparison cervical spine CT. TECHNIQUE: Noncontrast axial, coronal, and sagittal images of the head and cervical spine were obtained. Images stored on PACS. All CT scanners at this facility use dose modulation, iterative reconstruction, and/or weight based dosing when appropriate to reduce radiation dose to as low as reasonably achievable (ALARA). [facility]: Dose Right [facility]: CareDose [facility]: Dose Right [facility]: Teradose 4D [facility]: [employer] LIMITATIONS: None. FINDINGS: CT head: There is no acute intracranial hemorrhage, abnormal mass effect, or major vascular territorial infarction. The ventricular system and extra axial spaces are within normal limits. The calvarium is intact. The visualized portions of the paranasal sinuses and mastoid air cells are clear. CT cervical spine: There is no evidence of fracture or subluxation. No significant degenerative changes are identified. Left vagal nerve stimulator apparatus is partially visualized. There is no apical pneumothorax IMPRESSION: No acute abnormality as above. TECHNICAL DOCUMENTATION: Quality ID # 436: Final reports with documentation of one or more dose reduction techniques (e.g., Automated exposure control, adjustment of the mA and/or kV according to patient size, use of iterative reconstruction technique) copyright 2011 [employer]- All Rights Reserved
[2020-05-29 00:02] LABS: APPEARANCE,URINE CLOUDY; BILIRUBIN,URINE NEGATIVE (NEGATIVE); COLOR,URINE YELLOW; GLUCOSE, URINE NEGATIVE (NEGATIVE); KETONES,URINE TRACE mg/dL (NEGATIVE); LEUKOCYTE ESTERASE,URINE NEGATIVE (NEGATIVE); NITRITE,URINE NEGATIVE (NEGATIVE); PROTEIN,URINE 30 mg/dL (NEGATIVE); URINE SPECIFIC GRAVITY 1.017; UROBILINOGEN,URINE NEGATIVE mg/dL (<2.0)
--- NOTE | 2020-05-29 00:23 | EKG REPORT ---
SEVERITY:- BORDERLINE ECG - SINUS TACHYCARDIA PROBABLE LEFT ATRIAL ABNORMALITY : Confirmed by: Lori Agudelo 29-May-2020 00:22:15
[2020-05-29] MEDS ORDERED: LAMOTRIGINE 100 MG TABLET PO ONE (01:52)
[2020-05-29] MEDS ORDERED: LEVETIRACETAM 500 MG TABLET PO ONE (01:52)
[2020-05-29 02:25] VITALS: BP 166/110
== END 2020-05-29 02:26 | disposition home or self-care (01) ==
LOC: ER 18:35
DX: S09.90XA Unspecified injury of head, initial encounter (principal); G40.909 Epilepsy, unspecified, not intractable, without status epilepticus; X58.XXXA Exposure to other specified factors, initial encounter
CPT/HCPCS: 93005; 99285; 36415; 80177; 82962; 80307; 83735; 85025; 80053; 80175; 81001; 84484; 70450; 72125; 93010; J3490 ×2